=== PATIENT | female | born 1940 | race Caucasian/White ===

== ENCOUNTER 2019-05-07 18:59 | Inpatient (IN) | payer MEDICARE, OTHER ==
[~2019-05-07] VITALS: Ht 157.5 cm; Wt 85.8 kg
[2019-05-07 23:30] VITALS: BP 159/84
--- NOTE | 2019-05-07 23:30 | NUR ---
TELE WASTEWATER TREATMENT PLANT SUPERVISOR INITIAL NOTES RECEIVED A DIRECT ADMIT FROM [facility] ACCOMPANIED BY [facility]. PT IS ALERT ORIENTED SEEMS SO TIRED BUT ABLE TO COMMUNICATE . WITH 02 AT 3 LITERS VIA NASAL CANULA. NO SIGNS OF ANY DISTRESS NOTED. AWARE WHERE SHE AT ORIENTED HER HOW TO USED THE CALL LIGHT SYSTEM. SKIN WARM AND DRY TO TOUCH NOTICED SOME RASH AND DISCOLORATION ON HER LEFT ARM AND LOWER LEGS. NO EDEMA NOTED. SON ALSO AT THE BEDSIDE AND HELPED TO PROVIDE SOME INFORMATION REGARDING HIS MOM. TELE SINUS RHYTHM PER MONITOR. KEPT HER WARM AND COMFORTABLE AT ALL TIMES. WILL CONTINUE MONITORING.
[2019-05-08] MEDS ORDERED: NYST5ORA PO (00:12)
[2019-05-08] MEDS ORDERED: CHOL200026 PO (00:12)
[2019-05-08] MEDS ORDERED: PANT40TA2 PO (00:12)
[2019-05-08] MEDS ORDERED: OMEP40CA37 PO (00:12)
[2019-05-08] MEDS ORDERED: LINA5TAB PO (00:12)
[2019-05-08] MEDS ORDERED: ALBU18HF2 INH (00:12)
[2019-05-08] MEDS ORDERED: FLUT100D INH (00:12)
[2019-05-08] MEDS ORDERED: ALLO300T72 PO (00:12)
[2019-05-08] MEDS ORDERED: METF1000 PO (00:12)
[2019-05-08] MEDS ORDERED: HYDR15SO11 PO (00:12)
[2019-05-08 00:15] VITALS: BP 159/84
[2019-05-08] MEDS ORDERED: ACETAMINOPHEN 325 MG TABLET PO PRN (01:30)
[2019-05-08] MEDS ORDERED: Z GUARD REMEDY 2 OZ OINT TP PRN (01:30)
[2019-05-08] MEDS ORDERED: TPN/PPN PER PHARMACY XX PRN (01:30)
[2019-05-08] MEDS ORDERED: ONDANSETRON HCL/PF 4 MG/2 ML VIAL IVP PRN (01:30)
[2019-05-08 01:42] LABS: BASOPHILS % (AUTO) 0.3 % (0.0-2.0); EOSINOPHILS % (AUTO) 1.4 % (0.0-6.0); HEMATOCRIT 36 % (33-45); HEMOGLOBIN 11.8 g/dL (11.5-14.8); LYMPHOCYTES # (AUTO) 0.2 /CMM (0.8-4.8); MEAN CORPUSCULAR HGB CONC 33 g/dl (31.0-36.0); MEAN CORPUSCULAR VOLUME 83 fL (82-100); MONOCYTES % (AUTO) 0.4 % (2.0-12.0); NEUTROPHILS # (AUTO) 3.5 /CMM (1.8-8.9); NEUTROPHILS % (AUTO) 91.9 % (43.0-81.0); PLATELET COUNT (AUTO) 195 /CMM (150-450); RED BLOOD CELL COUNT(AUTO) 4.31 MIL/uL (4.0-5.2); WHITE BLOOD COUNT (AUTO) 3.8 K/uL (4.3-11.0)
[2019-05-08 01:53] LABS: ALANINE AMINOTRANSFERASE 24 U/L (12-78); ALKALINE PHOSPHATASE 65 U/L (46-116); ASPARTATE AMINOTRANSFERASE 28 U/L (15-37); BILIRUBIN,TOTAL 1.1 mg/dL (0.2-1.0); CALCIUM, SERUM 6.3 mg/dL (8.5-10.1); CARBON DIOXIDE 28 mmol/L (21-32); CHLORIDE 101 mmol/L (98-107); CREATININE 0.6 mg/dL (0.6-1.3); GLUCOSE 72 mg/dL (74-106); PHOSPHORUS 2.3 mg/dL (2.5-4.9); POTASSIUM 3.3 mmol/L (3.5-5.1); SODIUM SERUM 137 mmol/L (136-145); UREA NITROGEN, BLOOD 10 mg/dL (7-18)
[2019-05-08 01:57] LABS: MAGNESIUM 1.2 mg/dL (1.8-2.4)
[2019-05-08] MEDS ORDERED: IV 10% DEXTROSE 1,000 ML IV SCH (02:00)
--- NOTE | 2019-05-08 02:09 | NUR ---
TELE THREAD TRIMMER NOTES GOT CRITICAL VALUE RESULT MAGNESIUM 1.[address] VELÁSQUEZ AND RECEIVED ORDERED NOTED AND VERIFIED.
[2019-05-08] MEDS ORDERED: Magnesium 1GM/D5W 100ML PREMIX 200 ML IV ONE (02:17)
[2019-05-08] MEDS ORDERED: Magnesium 1GM/D5W 100ML PREMIX PIGGYBACK IV ONE (02:30)
--- NOTE | 2019-05-08 02:35 | NUR ---
TELE MULE DEVELOPER NOTES PT COMPLAINED OF GENERALIZED PAIN SPECIALLY HER UPPER BACK 07/21. SPOKE TO DR VELÁSQUEZ AND GOT ORDERED MORPHINE 2 MG Q 6 HRS PRN NOTED AND VERIFIED.
[2019-05-08] MEDS: Magnesium 1GM/D5W 100ML PREMIX 100 ML IV SCH ×4 (02:39→15:31)
[2019-05-08] MEDS: MORPHINE SULFATE INJ 2 MG/ML DISP.SYRIN IV PRN ×3 (02:58→22:29)
--- NOTE | 2019-05-08 03:46 | NUR ---
TELE HEAD TURNING MACHINE OPERATOR NOTES/PAIN MGT RE- ASSESSMENT, CHECKED PT AND SEEN SLEEPING COMFORTABLY IN BED WITHOUT ANY DISCOMFORT OR DISTRESS NOTED. TELE SINUS RHYTHM WITH PAC'S HEART RATE 75. WILL CONTINUE MONITORING
[2019-05-08 04:00] VITALS: BP 145/80
[2019-05-08 04:40] VITALS: BP 145/80
--- NOTE | 2019-05-08 07:19 | NUR ---
TELE MOTHER REPAIRER CLOSING NOTES PT BACK TO SLEEP AFTER MORNING CARE DONE WITH THE HELPED OF IFRAH ALFONSO. REPOSITION PT FOR COMFORT. IVF STILL INFUSING ON HER LEFT AC PATENT AND INTACT. NO REDNESS NOTED. TELE SINUS RHYTHM HEART RATE 78 PER MONITOR. MRSA SWAB DONE ORDERED AND PER HOSPITAL PROTOCOL . KEPT HER WARM AND COMFORTABLE AT ALL TIMES. PT STILL WITH O2 AT 3 LITERS VIA NASAL CANULA. NO SIGNS OF ANY DISTRESS NOTED. VITAL SIGNS WITHIN NORMAL LIMIT. ON SEMI FOWLERS POSITION WITH SIDE RAILS UP AND BED ALARM SET FOR PT SAFETY. ENDORSE TO AM NURSE LEANNE FOR CONTINUITY OF CARE. CALL LIGHT WITHIN REACH.
--- NOTE | 2019-05-08 07:30 | NUR ---
PRODUCE SORTER OPENING NOTES RECEIVED PATIENT ASLEEP ON BED. IVF STILL INFUSING ON HER LEFT AC PATENT AND INTACT. NO REDNESS NOTED. TELE SINUS RHYTHM WITH OCCASIONAL PAC WITH HEART RATE OF 70'S PER MONITOR. PT STILL WITH O2 AT 3 LITERS VIA NASAL CANULA. NO SIGNS OF ANY DISTRESS NOTED. ON SEMI FOWLERS POSITION WITH SIDE RAILS UP AND BED ALARM SET FOR PT SAFETY. CALL LIGHT WITHIN REACH. WILL CONTINUE TO MONITOR.
[2019-05-08 08:00] VITALS: BP 156/77
[2019-05-08] MEDS: NYSTATIN (PYXIS) 500,000 UNIT/5 ML ORAL.SUSP PO SCH ×2 (09:18→12:44)
--- NOTE | 2019-05-08 09:32 | NUR ---
CUSTOMER ENGAGEMENT ANALYST NOTES RECEIVED ORDER FOR X-RAY ESOPHAGRAM, EXPLAINED THE PROCEDURE TO THE PATIENT AND SON. CONSENT SIGNED BY KADEN MCKEON (SON) WHICH IS THE DPOA AND FILED.
[2019-05-08] MEDS ORDERED: PANTOPRAZOLE 40 MG VIAL IV SCH (10:00)
--- NOTE | 2019-05-08 11:18 | NUR ---
RN NOTES PATIENT PICKED UP VIA HER BED FOR X-RAY ESOPHAGRAM.
[2019-05-08] MEDS ORDERED: BARIUM SULFATE 98% 135 ML SUSP.RECON PO ONE (11:28)
[2019-05-08] MEDS: IV D5/0.45 NACL 1,000 ML IV PRN (12:01)
[2019-05-08] MEDS: FAMOTIDINE/PF INJ 20 MG/2 ML VIAL IV SCH ×2 (12:25→21:13)
[2019-05-08] MEDS ORDERED: Sodium Phosphate 15 MMOL in IV D5W 250 ML IV ONE (13:00)
[2019-05-08] MEDS: POTASSIUM CL. PREMIX PERIPHER. 50 ML IV SCH ×2 (13:23→14:31)
--- NOTE | 2019-05-08 15:09 | NUR ---
RN NOTES SWALLOW EVALUATION DONE WITH ORDERS TO CHANGE DIET FROM NPO TO PUREED DIET WITH NECTAR THICK LIQUIDS WITH ASPIRATION PRECAUTION.
[2019-05-08 16:00] VITALS: BP 145/75
--- NOTE | 2019-05-08 17:12 | NUR ---
RN NOTES FAXED AUTHORIZATION TO RELEASED CT CHEST SCAN RESULT TO [facility] FAX # [phone] AND RECEIVED CONFIRMATION THAT IT WAS RECEIVED. PT'S SON SAID THAT HE WILL TRY TO BRING THE CT CHEST RESULT ALSO TOMORROW.
[2019-05-08] MEDS ORDERED: DOSE PER PHARMACY (MD SPECIFY MEDICATION) 1 EA XX PRN (17:30)
[2019-05-08] MEDS ORDERED: FLUCONAZOLE (100 MG) 100 MG TABLET PO ONE (17:41)
[2019-05-08] MEDS ORDERED: MAG HYDROX/AL HYDROX/SIMETH 30 ML UDC PO ONE (17:51)
[2019-05-08] MEDS ORDERED: NYSTATIN (PYXIS) 500,000 UNIT/5 ML ORAL.SUSP PO ONE (17:51)
[2019-05-08] MEDS ORDERED: LIDOCAINE VISCOUS 2% UD 15 ML UDC PO ONE (17:51)
--- NOTE | 2019-05-08 18:01 | NUR ---
RN NOTES PATIENT IS STILL FOR PICC LINE INSERTION, CONSENT ALREADY SIGNED.
--- NOTE | 2019-05-08 18:23 | NUR ---
RN NOTES PATIENTS' MAGNESIUM LEVEL WAS RECHECKED THIS AFTERNOON AND WAS 1.5 AFTER GIVING 2 BAGS OF MAGNESIUM 1/GM 100ML TODAY. DR SMART MADE AWARE WITH ORDER TO START MAGNESIUM OXIDE 800MG BID. WILL CARRY OUT ORDER. MONITORING CONTINUES.
--- NOTE | 2019-05-08 18:33 | NUR ---
MS RN OPENING NOTES PATIENT IN BED AWAKE AND RESTING AT MODERATE HIGH BACKREST POSITION WITH FAMILY AT BEDSIDE. A/O X3. VERBALLY RESPONSIVE. ON SUPPLEMENTAL O2 AT 3 LPM VIA N/C, TOLERATING WELL WITH NO SIGNS OF DISTRESS NOTED. IV ACCESS ON LEFT AC PATENT AND INTACT, IVF INFUSING ORDERED, NO S/S OF INFILTRATIONS NOTED. ALL NEEDS NAD CARE PROVIDED WELL. SAFETY MEASURES IN PLACE. BED IN LOW LOCKED POSITION WITH SIDE-RAILS UP X2. CALL LIGHT WITHIN REACH. WILL ENDORSE TO PAINT LINE PRODUCTION SUPERVISOR NURSE FOR TREVON..
[2019-05-08] MEDS: MAGNESIUM OXIDE 400 MG TABLET PO SCH (18:45)
[2019-05-08 20:00] VITALS: BP 155/86
--- NOTE | 2019-05-08 20:00 | NUR ---
MS RN NOTE: PATIENT RESTING IN BED, NO ACUTE DISTRESS NOTED, FAMILY AT BEDSIDE. BREATHING EVEN AND UNLABORED, NO SOB NOTED. IV LAC IN PLACE. BED LOCKED AND IN LOWEST POSITION, CALL LIGHT IN REACH. WILL CONTINUE TO MONITOR.
[2019-05-08] MEDS: MAGIC MOUTHWASH PO SCH (21:13)
[2019-05-08] MEDS ORDERED: NYSTATIN (PYXIS) 500,000 UNIT/5 ML ORAL.SUSP PO SCH (22:00)
[2019-05-08] MEDS ORDERED: LIDOCAINE VISCOUS 2% UD 15 ML UDC PO SCH (22:00)
[2019-05-08] MEDS ORDERED: MAG HYDROX/AL HYDROX/SIMETH 30 ML UDC PO SCH (22:00)
[2019-05-08] MEDS ORDERED: ALBUTEROL FS 2.5 MG/0.5 ML VIAL.NEB NEB PRN (22:30)
[2019-05-08] MEDS ORDERED: ALBUTEROL FS 2.5 MG/3 ML VIAL.NEB NEB PRN (22:30)
--- NOTE | 2019-05-08 22:30 | NUR ---
MS RN NOTE: PATIENT SON AT BEDSIDE REQUESTING FROM BREATHING TREATMENT THAT PATIENT NORMALLY TAKES AT HOME. CLOCK AND WATCH HANDS PAINTER DR. EMMA BALDWIN ON FLOOR AND REQUEST IF PATIENT CAN RECEIVE BREATHING TREATMENT. VENTOLIN 2.5MG NEB Q6 HOURS NEEDED. ORDER NOTED AND CARRIED OUT. WILL CONTINUE TO MONITOR.
--- NOTE | 2019-05-09 06:45 | NUR ---
MS RN NOTE: PATIENT RESTING IN BED, NO ACUTE DISTRESS NOTED. BREATHING EVEN AND UNLABORED, NO SOB NOTED. IV LAC IN PLACE. BED LOCKED AND IN LOWEST POSITION, CALL LIGHT IN REACH. WILL ENDORSE TO DAY NURSE TO CONTINUE WITH PLAN OF CARE.
--- NOTE | 2019-05-09 07:25 | NUR ---
MS RN OPENING NOTES RECEIVED PT SLEEPING IN BED, EASILY AROUSED. FARSI SPEAKING, CAN UNDERSTAND AND SPEAK A LITTLE TURKISH. ON SUPPLEMENTARY OXYGEN AT 3L VIA NC, WITH NO ACUTE RESPIRATORY DISTRESS NOTED. PT DENIES ANY PAIN OR DISCOMFORT. ALSO, DENIES ANY CONCERNS AND QUESTIONS. IVF D5 1/2 NS AT 75 ML/HR TO LAC G20, INTACT AND FLUID INFUSING WELL. PT KEPT COMFORTABLE. PT'S BED IN LOWEST, LOCKED POSITION WITH SR X3. CALL LIGHT WITHIN REACH. WILL CONTINUE PLAN OF CARE.
[2019-05-09 07:32] LABS: BASOPHILS % (AUTO) 0.4 % (0.0-2.0); EOSINOPHILS % (AUTO) 3.5 % (0.0-6.0); HEMATOCRIT 32 % (33-45); HEMOGLOBIN 10.8 g/dL (11.5-14.8); LYMPHOCYTES # (AUTO) 0.2 /CMM (0.8-4.8); LYMPHOCYTES % (AUTO) 12.5 % (20.0-44.0); MEAN CORPUSCULAR HGB CONC 34 g/dl (31.0-36.0); MEAN CORPUSCULAR VOLUME 83 fL (82-100); MONOCYTES % (AUTO) 0.9 % (2.0-12.0); NEUTROPHILS # (AUTO) 1.2 /CMM (1.8-8.9); NEUTROPHILS % (AUTO) 82.7 % (43.0-81.0); PLATELET COUNT (AUTO) 134 /CMM (150-450); RED BLOOD CELL COUNT(AUTO) 3.92 MIL/uL (4.0-5.2)
[2019-05-09 07:39] LABS: WHITE BLOOD COUNT (AUTO) 1.4 K/uL (4.3-11.0)
[2019-05-09 07:40] LABS: CHOLESTEROL 181 mg/dL (<200); HDL CHOLESTEROL 63 mg/dL (40-60); LDL 97 mg/dL (0-99); TRIGLYCERIDES 131 mg/dL (30-150)
[2019-05-09 07:44] LABS: BILIRUBIN,DIRECT 0.5 mg/dL (0.0-0.2); BILIRUBIN,TOTAL 1.4 mg/dL (0.2-1.0); TOTAL PROTEIN, SERUM 4.9 g/dL (6.4-8.2)
--- NOTE | 2019-05-09 07:49 | NUR ---
MS RN NOTES RECEIVED CALL FROM LAB REGARDING WBC OF 1.4. WILL NOTIFY HOSPITALIST.
[2019-05-09 07:54] LABS: CALCIUM, SERUM 6.3 mg/dL (8.5-10.1); CARBON DIOXIDE 29 mmol/L (21-32); CHLORIDE 97 mmol/L (98-107); CREATININE 0.5 mg/dL (0.6-1.3); GLUCOSE 192 mg/dL (74-106); MAGNESIUM 1.4 mg/dL (1.8-2.4); PHOSPHORUS 1.7 mg/dL (2.5-4.9); POTASSIUM 2.9 mmol/L (3.5-5.1); SODIUM SERUM 134 mmol/L (136-145); UREA NITROGEN, BLOOD 7 mg/dL (7-18)
[2019-05-09 08:00] VITALS: BP 149/75
[2019-05-09] MEDS: MAGIC MOUTHWASH PO SCH ×4 (08:19→21:04)
[2019-05-09 08:30] LABS: THYROID STIMULATING HORMONE 1.831 uIU/mL (0.358-3.74)
[2019-05-09 08:59] LABS: ABG BASE EXCESS 5.4 mmol/L; ABG PH 7.562 (7.350-7.450); ABG PO2 111.5 mmHg (75.0-100.0); AaDO2 109.2 mmHg; MetHb 0.6 % (0.0-1.5); O2Hb 96.4 % (94.0-97.0); SITE, ABG Right Radial; VENT MODE, BG N/C
[2019-05-09] MEDS: MAGNESIUM OXIDE 400 MG TABLET PO SCH ×2 (09:00→16:52)
[2019-05-09] MEDS: FAMOTIDINE/PF INJ 20 MG/2 ML VIAL IV SCH ×2 (09:06→21:01)
[2019-05-09] MEDS: POTASSIUM CL. PREMIX PERIPHER. 50 ML IV SCH ×6 (10:12→16:11)
[2019-05-09 10:24] LABS: EOSINOPHILS % (MANUAL) 3 % (0-4); LYMPHOCYTES % (MANUAL) 15 % (16-48); NEUTROPHILS % (MANUAL) 82 (42-76)
[2019-05-09] MEDS ORDERED: FILGRASTIM (300 MCG) 300 MCG/ML VIAL SQ SCH (11:00)
[2019-05-09] MEDS: MORPHINE SULFATE INJ 2 MG/ML DISP.SYRIN IV PRN ×3 (11:12→23:05)
--- NOTE | 2019-05-09 13:00 | NUR ---
MS RN NOTES PICC LINE WITH 2 LUMENS INSERTED TO NAVARRO BV, 39CM WITH 35CM AC. CXRAY WAS DONE STAT TO CONFIRM PLACEMENT. CASEY/GERARDO MADE AWARE. FAMILY/SON PRESENT AT BEDSIDE. GRANIX 300MG SQ GIVEN TO RLQ OF ABDOMEN.
[2019-05-09] MEDS: TBO-FILGRASTIM 300 MCG/0.5 ML SYRINGE SQ SCH (13:05)
--- NOTE | 2019-05-09 14:50 | NUR ---
MS RN NOTES RECEIVED CALL FROM LAB REGARDING RIGHT NARE POSITIVE FOR MRSA. CONTACT ISOLATION INITIATED. HOSPITALIST TS MADE AWARE. PT PLACED ON BACTROBAN TREATMENT. CASEY/GERARDO MADE AWARE WELL.
[2019-05-09 16:00] VITALS: BP 161/77
[2019-05-09] MEDS ORDERED: Sodium Phosphate 15 MMOL in IV D5W 250 ML IV ONE (16:00)
[2019-05-09] MEDS: FLUCONAZOLE (100 MG) 100 MG TABLET PO SCH (16:52)
--- NOTE | 2019-05-09 17:15 | NUR ---
MS RN NOTES PT COMPLAINED OF LOWER BACK PAIN, SCALE OF 8-9 OUT OF 10. PT REQUESTED MORPHINE IV. GIVEN PRN PAIN MEDICATION ORDERED. WILL CONTINUE TO MONITOR.
--- NOTE | 2019-05-09 18:28 | NUR ---
MS RN CLOSING NOTES PT REMAINS RESTING IN BED, EASILY AROUSED. FARSI SPEAKING, CAN UNDERSTAND AND SPEAK A LITTLE PORTUGUESE. 2 FAMILY MEMBERS PRESENT AT BEDSIDE. ON SUPPLEMENTARY OXYGEN AT 3L VIA NC, WITH NO ACUTE RESPIRATORY DISTRESS NOTED. PT DENIES ANY PAIN OR DISCOMFORT AT THIS TIME IVF D5 1/2 NS AT 75 ML/HR TO NAVARRO PICC LINE (WITH 2LUMENS), INTACT AND FLUID INFUSING WELL. PIV TO LAC G20, FLUSHED WITH NS, INTACT AND OPERATIONAL. ALL NEEDS AND CARE PROVIDED. PT KEPT COMFORTABLE. HOB ELEVATED. PT'S BED IN LOWEST, LOCKED POSITION WITH SR X3. CALL LIGHT WITHIN REACH. WILL ENDORSE TO INCOMING NIGHT NURSE FOR TREVON.
--- NOTE | 2019-05-09 19:45 | NUR ---
MS RN NOTES RECEIVED ON BED A/O X2-3,SPEAK FARSI,ABLE TO UNDERSTAND RWANDAN.APPEARS LETHARGIC,WAS JUST MEDICATED WITH MORPHINE BY DAY NURSE AT 1700.WITH PICC LINE RIGHT UPPER ARM INTACT AND PATENT,NUTRA PHOS IN PROGRESS.ISOLATION PRECAUTION FOR MRSA NARES.NOTED SWELLING ON BOTH UPPER AND LOWER EXTREMITIES.CALL LIGHT IN REACH,NEEDS ANTICIPATED.
[2019-05-09 20:00] VITALS: BP 140/75
[2019-05-09] MEDS: MUPIROCIN OINT 2% 22 GM TUBE SCH (21:02)
--- NOTE | 2019-05-09 23:05 | NUR ---
MS RN NOTES MOANS IN PAIN,MEDICATED WITH MORPHINE 2MG IV ORDERED AND PER FAMILY REQUEST.
--- NOTE | 2019-05-10 04:00 | NUR ---
MS RN NOTES DL ALFONSO CAME THIS TIME.
[2019-05-10] MEDS: IV D5/0.45 NACL 1,000 ML IV PRN ×2 (04:39→17:45)
[2019-05-10] MEDS: MORPHINE SULFATE INJ 2 MG/ML DISP.SYRIN IV PRN (05:36)
--- NOTE | 2019-05-10 05:36 | NUR ---
MS RN NOTES AWAKE,MOANING IN PAIN,MEDICATED WITH MORPHINE 2MG IV PER FAMILY REQUEST.IVF INFUSING.
--- NOTE | 2019-05-10 06:30 | NUR ---
MS RN NOTES ON BED SLEEPING,IVF IN PROGRESS,PICC LINE REMAINS PATENT.BLOOD DRAWN DONE ON PICC LINE RED PORT,FLUSHED WITH NS AND KEPT PATENT.REPOSITION PER PROTOCOL.SON AT BEDSIDE,AWAITING FOR HOSPITALIST TO DISCUSS ABOUT PLAN OF CARE REGARDING PATIENT.IN NO ACUTE DISTRESS.WILL ENDORSE TO AMIE MURILLO FOR TREVON.
[2019-05-10 07:23] LABS: CALCIUM, SERUM 6.2 mg/dL (8.5-10.1); CARBON DIOXIDE 28 mmol/L (21-32); CHLORIDE 97 mmol/L (98-107); CREATININE 0.5 mg/dL (0.6-1.3); GLUCOSE 263 mg/dL (74-106); PHOSPHORUS 1.8 mg/dL (2.5-4.9); POTASSIUM 3.3 mmol/L (3.5-5.1); SODIUM SERUM 132 mmol/L (136-145); UREA NITROGEN, BLOOD 6 mg/dL (7-18)
--- NOTE | 2019-05-10 07:38 | NUR ---
M/S RN NOTES PATIENT IN BED RESTING, ALERT AND ORIENTED X3, NO RESPIRATORY DISTRESS NOTED, NO C/O PAIN AT THIS TIME. SKIN WARM TO TOUCH. PICC LINE INTACT AND PATENT WITH IVF OF D5 1/2NS RUNNING. PATIENT'S NEEDS ATTENDED, BED ON LOWEST LOCKED POSITION, CALL LIGHT WITHIN REACH. WILL CONTINUE TO MONITOR.
[2019-05-10 08:00] VITALS: BP 146/69
[2019-05-10] MEDS: MAGIC MOUTHWASH PO SCH ×4 (08:34→21:16)
[2019-05-10] MEDS: MAGNESIUM OXIDE 400 MG TABLET PO SCH ×2 (08:39→16:28)
[2019-05-10] MEDS: FLUCONAZOLE (100 MG) 100 MG TABLET PO SCH (08:39)
[2019-05-10] MEDS: FAMOTIDINE/PF INJ 20 MG/2 ML VIAL IV SCH ×2 (08:40→21:14)
[2019-05-10] MEDS: MUPIROCIN OINT 2% 22 GM TUBE SCH ×2 (08:51→21:15)
[2019-05-10] MEDS ORDERED: NEUTRA PHOS 1 POWD.PACKET PO ONE (11:00)
[2019-05-10] MEDS ORDERED: POTASSIUM CHLORIDE 20 MEQ POWDER PACKET PO SCH (11:00)
--- NOTE | 2019-05-10 13:00 | NUR ---
M/S RN NOTES PIPO SMART, AMBROCIO CAME TO SEE PATIENT AND FAMILY IN REGARDS TO DISCHARGE BUT SON KADEN LEFT WITHOUT SEEING PIPO SMART.
[2019-05-10] MEDS: TBO-FILGRASTIM 300 MCG/0.5 ML SYRINGE SQ SCH (13:06)
[2019-05-10] MEDS ORDERED: TBO-FILGRASTIM 300 MCG/0.5 ML SYRINGE SQ SCH (14:30)
[2019-05-10 16:00] VITALS: BP 140/72
--- NOTE | 2019-05-10 18:10 | NUR ---
M/S RN NOTES PATIENT LYING IN BED RESTING, ALERT AND ORIENTED X2. NO RESPIRATORY DISTRESS NOTED, NO S/S OF PAIN AT THIS TIME. SKIN WARM TO TOUCH. IVF OF D5 1/2 INFUSING ON THE [facility] PICC LIJNE, NO REDNESS, NO INFILTRATION NOTED. PATIENT'S NEEDS ATTENDED. BED ON LOWEST LOCKED POSITION, CALL LIGHT WITHIN REACH. WILL ENDORSE TO ONCOMING NURSE.
--- NOTE | 2019-05-10 19:23 | NUR ---
MS RN NOTES RECEIVED LAYING COMFORTABLY ON BED,A/O X2-3,BREATHING NON LABORED,O2 IN USED AT 3L/NC,SPEAK FARSI WITH LITTLE LAO,NOTED EDEMA ON BOTH LOWER AND UPPER EXTREMITIES.KCI MATTRESS IN USED FOR SKIN MANAGEMENT.SALINE LOCK IN PLACE INFUSING D5 1/2 NS AT 75ML HR RATE.ISOLATION PRECAUTION FOR MRSA NARES.FAMILY MEMBERS AT BEDSIDE.CALL LIGHT IN REACH,NEEDS ANTICIPATED.
[2019-05-10 20:00] VITALS: BP 143/73
[2019-05-10 20:59] VITALS: BP 143/73
--- NOTE | 2019-05-10 21:00 | NUR ---
MS RN NOTES ORAL CARE RENDERED,DUE NYSTATIN ADMINISTERED FOR ORAL THRUSH
[2019-05-11] MEDS: MORPHINE SULFATE INJ 2 MG/ML DISP.SYRIN IV PRN ×2 (02:51→11:41)
--- NOTE | 2019-05-11 02:51 | NUR ---
MS RN NOTES AWAKE THIS TIME,MOANING AND RESTLESS.MORPHINE 2MG IV GIVEN ORDERED.DIAPER CHANGED,REPOSITIONED.
--- NOTE | 2019-05-11 06:14 | NUR ---
MS RN NOTES FAIRLY RESTED.MEDICATED ONE TIME WITH MORPHINE 2MG IV.REMAINS ON ISOLATION PRECAUTION.REPOSITION PER PROTOCOL.SWELLING ON BOTH UPPER AND LOWER EXTREMITIES IMPROVING.PICC LINE REMAINS PATENT ON RIGHT UPPER ARM.IN NO ACUTE DISTRESS
[2019-05-11 07:04] LABS: CALCIUM, SERUM 6.1 mg/dL (8.5-10.1); CARBON DIOXIDE 27 mmol/L (21-32); CHLORIDE 97 mmol/L (98-107); CREATININE 0.6 mg/dL (0.6-1.3); GLUCOSE 271 mg/dL (74-106); PHOSPHORUS 1.6 mg/dL (2.5-4.9); POTASSIUM 3.4 mmol/L (3.5-5.1); SODIUM SERUM 132 mmol/L (136-145); UREA NITROGEN, BLOOD 5 mg/dL (7-18)
--- NOTE | 2019-05-11 07:20 | NUR ---
MS RN OPENING NOTES PATIENT IN BED RESTING COMFORTABLY. PATIENT BREATHING ON OXYGEN NC 3L. PATIENT BREATHING IS EVEN AND UNLABORED. PATIENT IN NO ACUTE DISTRESS. NO SOB NOTED. PATIENT WITH NO FACIAL GRIMACING AT THIS TIME. PATIENT BED IS LOCKED AND IN LOWEST POSITION. CALL LIGHT WITHIN REACH. WILL CONTINUE TO MONITOR.
[2019-05-11 07:33] LABS: MAGNESIUM 0.9 mg/dL (1.8-2.4)
--- NOTE | 2019-05-11 07:40 | NUR ---
MS RN NOTES RECEIVED CRITICAL VALUE MAGNESIUM 0.9 AND WBC 0.5. CONTACTED DR. SAM. BALDWIN AWARE AND NOTIFIED. WAITING ON REDRAW FOR LABS.
[2019-05-11 08:00] VITALS: BP 136/66
[2019-05-11 08:49] LABS: EOSINOPHILS % (AUTO) 4.3 % (0.0-6.0); HEMATOCRIT 28 % (33-45); HEMOGLOBIN 9.4 g/dL (11.5-14.8); LYMPHOCYTES # (AUTO) 0.2 /CMM (0.8-4.8); LYMPHOCYTES % (AUTO) 67.2 % (20.0-44.0); MEAN CORPUSCULAR HGB CONC 34 g/dl (31.0-36.0); MEAN CORPUSCULAR VOLUME 82 fL (82-100); MONOCYTES # (AUTO) 0.1 /CMM (0.1-1.30); MONOCYTES % (AUTO) 22.6 % (2.0-12.0); NEUTROPHILS % (AUTO) 5.9 % (43.0-81.0); PLATELET COUNT (AUTO) 82 /CMM (150-450); RED BLOOD CELL COUNT(AUTO) 3.42 MIL/uL (4.0-5.2)
--- NOTE | 2019-05-11 08:54 | NUR ---
MS RN NOTES 0740 MAGNESIUM LAB LEVEL REPORTED WAS 0.9. REPEAT MAGNESIUM LAB IS 0.9. ORDERS FROM DR. PARK, 2GM IV MAG. WILL CONTINUE TO MONITOR.
[2019-05-11] MEDS ORDERED: Magnesium 1GM/D5W 100ML PREMIX PIGGYBACK IV ONE (09:00)
--- NOTE | 2019-05-11 09:00 | NUR ---
MS RN NOTES RECEIVED WBC CRITICAL VALUE OF 0.2. NOTIFIED DR. XAVIER MACKEY. NO NEW ORDERS AT THIS TIME. PATIENT IN NO ACUTE DISTRESS. WILL CONTINUE TO MONITOR.
[2019-05-11 09:01] LABS: WHITE BLOOD COUNT (AUTO) 0.2 K/uL (4.3-11.0)
[2019-05-11] MEDS: MAGIC MOUTHWASH PO SCH ×4 (09:36→22:00)
[2019-05-11] MEDS: FAMOTIDINE/PF INJ 20 MG/2 ML VIAL IV SCH ×2 (09:37→23:30)
[2019-05-11] MEDS: MAGNESIUM OXIDE 400 MG TABLET PO SCH ×3 (09:38→16:59)
[2019-05-11] MEDS: FLUCONAZOLE (100 MG) 100 MG TABLET PO SCH (09:38)
[2019-05-11] MEDS: MUPIROCIN OINT 2% 22 GM TUBE SCH ×2 (09:53→23:35)
[2019-05-11] MEDS: Magnesium 1GM/D5W 100ML PREMIX 100 ML IV SCH ×4 (09:53→17:22)
[2019-05-11 11:43] LABS: EOSINOPHILS % (MANUAL) 2 % (0-4); LYMPHOCYTES % (MANUAL) 75 % (16-48); MONOCYTES % (MANUAL) 19 % (0-11.0); NEUTROPHILS % (MANUAL) 4 (42-76)
--- NOTE | 2019-05-11 12:17 | NUR ---
MS/RN Magnesium level Received call from pharmacy to follow up with Dr Ryan regarding magnesium level being 0.9. Per pharmacy protocol, magnesium to be replaced by pharmacist if level greater than 1.2. Dr Ramírez already contacted by primary nurse at 0933 and made aware of level, order given to infuse 2gm IVPB. MD also contacted by pharmacist. Dr Ramírez paged by charge nurse to be made aware of level and to obtain new order. Per MD, order already given for 2gm this morning and no further order was needed. Pharmacy made aware.
[2019-05-11] MEDS: TBO-FILGRASTIM 300 MCG/0.5 ML SYRINGE SQ SCH (12:51)
[2019-05-11] MEDS ORDERED: POTASSIUM CHLORIDE 20 MEQ POWDER PACKET PO SCH (13:00)
[2019-05-11] MEDS ORDERED: K PHOS NEUTRAL 250 MG TABLET PO ONE (13:30)
--- NOTE | 2019-05-11 13:50 | NUR ---
MS RN NOTES PATIENT IS RESTING IN BED. PATIENT IN NO ACUTE DISTRESS. PATIENT PLACED ON NEUTROPENIC PRECAUTIONS. WILL CONTINUE TO MONITOR.
[2019-05-11] MEDS: IV D5/0.45 NACL 1,000 ML IV PRN (15:07)
--- NOTE | 2019-05-11 15:30 | NUR ---
MS RN NOTES PATIENT MOST RECENT MAGNESIUM LAB LEVEL IS 1.5. PER DR. PARK GIVE 2GM IV MAGNESIUM IF BELOW 1.7. WILL CARRY OUT ORDERS. PATIENT IN NO ACUTE DISTRESS. WILL CONTINUE TO MONITOR.
[2019-05-11 16:00] VITALS: BP 154/76
--- NOTE | 2019-05-11 16:00 | NUR ---
MS RN NOTES NOTIFIED DR. PARK OF PATIENTS FAMILY WANTING TO SPEAK WITH HIM. DR. PARK AT THIS TIME HAS NOT SPOKEN TO PATIENT FAMILY. PATIENT FAMILY WAITING BY BEDSIDE. PATIENT IN NO ACUTE DISTRESS. WILL CONTINUE TO MONITOR.
[2019-05-11] MEDS ORDERED: ACETAMINOPHEN 650 MG/SUPP.RECT RC PRN (17:00)
[2019-05-11] MEDS ORDERED: CEFEPIME 1 GM VIAL IM SCH (17:30)
[2019-05-11] MEDS: CEFEPIME 1 GM in IV D5W 50 ML IV SCH (18:29)
--- NOTE | 2019-05-11 18:52 | NUR ---
MS RN CLOSING NOTES PATIENT LAYING IN BED, RESTING COMFORTABLY. PATIENT BREATHING ON OXYGEN NC 3L. PATIENT BREATHING IS EVEN AND UNLABORED. PATIENT IN NO ACUTE DISTRESS. PATIENT RECEIVING CEFEPIME 100 ML/HR ON RIGHT ARM PICC LINE PER MD ALBERTO. DR. PARK NOTIFIED ABOUT PATIENTS FAMILY REQUEST TO TALK TO DOCTOR, PATIENTS FAMILY IS AT THE BEDSIDE. BED ALARM IS ON. ALL NURSING NEEDS MET. PATIENT KEPT CLEAN, DRY, AND REPOSITIONED. PATIENT MAINTAINED ON NEUTROPENIC PRECAUTIONS. PATIENT BED IS LOCKED AND IN LOWEST POSITION. CALL LIGHT WITHIN REACH. WILL ENDORSE CARE TO PM SHIFT.
--- NOTE | 2019-05-11 19:50 | NUR ---
RN OPENING NOTES RECEIVED REPORT FROM [facility]. FOUND Pt ASLEEP IN BED, FAMILY VISITING AT BEDSIDE. NO S/S OF ACUTE DISTRESS OR SOB NOTED. RESPIRATIONS EVEN AND UNLABORED AT THIS TIME WITH EQUAL CHEST RISE AND FALL. NO SIGNS OF PAIN NOTED AT THIS TIME. Pt IS A/OX2. IV ACCESS ON NAVARRO PICC LINE, #18G; IVF D5 1/2NS @75ML/HR. SAFETY MEASURES IN PLACE. BED LOW, LOCKED, HOB ELEVATED, SIDE RAILS UP, BED ALARM ON. WILL CONTINUE TO MONITOR Pt's CONDITION AND SAFETY THROUGHOUT THE NIGHT.
[2019-05-11 20:00] VITALS: BP 129/72
[2019-05-11 21:04] LABS: APPEARANCE,URINE SL CLOUDY (CLEAR); BILIRUBIN,URINE NEGATIVE (NEGATIVE); BLOOD, URINE NEGATIVE Ery/uL (NEGATIVE); COLOR,URINE YELLOW (YELLOW); KETONES,URINE 1+ (NEGATIVE); LEUKOCYTE ESTERASE ,URINE TRACE (NEGATIVE); NITRITE, URINE NEGATIVE (NEGATIVE); PH,URINE 7.5 (5.0-8.0); PROTEIN,URINE TRACE mg/dl (NEGATIVE); UGLUCOSE 3+ mg/dL (NEGATIVE)
[2019-05-11 21:09] LABS: RBC,URINE 0-2 /HPF (0-2)
[2019-05-11 21:10] LABS: BACTERIA,URINE Few /HPF (None Seen); SQUAMOUS EPITHELIAL CELL,UR Few /HPF (None Seen)
--- NOTE | 2019-05-11 23:36 | NUR ---
RN NOTES FAMILY AT BEDSIDE REFUSED FOR MAGIC MOUTHWASH TO BE GIVEN AT THIS TIME SINCE Pt IS ASLEEP AND THEY DO NOT WANT HER TO BE DISTURBED.
--- NOTE | 2019-05-12 07:10 | NUR ---
RN CLOSING NOTES NO SIGNIFICANT CHANGES IN Pt's CONDITION. NO S/S OF ACUTE DISTRESS OR SEVERE SOB NOTED DURING THE NIGHT. ALL NEEDS MET AND ATTENDED TO. SAFETY MEASURES IN PLACE. TEMP HAS DECREASED TO 98.5F WILL ENDORSE TO DAYSHIFT RN FOR Pt's TREVON.
[2019-05-12 07:18] LABS: HEMATOCRIT 27 % (33-45); HEMOGLOBIN 8.9 g/dL (11.5-14.8); MEAN CORPUSCULAR HGB CONC 34 g/dl (31.0-36.0); MEAN CORPUSCULAR VOLUME 82 fL (82-100); RED BLOOD CELL COUNT(AUTO) 3.23 MIL/uL (4.0-5.2)
[2019-05-12 07:31] LABS: PLATELET COUNT (AUTO) 95 /CMM (150-450); WHITE BLOOD COUNT (AUTO) 0.3 K/uL (4.3-11.0)
[2019-05-12 07:37] LABS: CALCIUM, SERUM 6.4 mg/dL (8.5-10.1); CARBON DIOXIDE 26 mmol/L (21-32); CHLORIDE 95 mmol/L (98-107); CREATININE 0.6 mg/dL (0.6-1.3); GLUCOSE 306 mg/dL (74-106); PHOSPHORUS 1.4 mg/dL (2.5-4.9); POTASSIUM 3.1 mmol/L (3.5-5.1); SODIUM SERUM 130 mmol/L (136-145); UREA NITROGEN, BLOOD 5 mg/dL (7-18)
[2019-05-12 07:58] LABS: LYMPHOCYTES % (MANUAL) 59 % (16-48); MONOCYTES % (MANUAL) 27 % (0-11.0); NEUTROPHILS % (MANUAL) 14 (42-76)
[2019-05-12 08:00] VITALS: BP 138/68
--- NOTE | 2019-05-12 08:00 | NUR ---
m/s cloth drier: initial assessment received pt in bed with eyes close, arousable but appears weak. reverse isolation precaution maintained. no s/s of discomfort. breakfast served, but pt refusing to eat at this time. will continue to monitor.
[2019-05-12] MEDS: FLUCONAZOLE (100 MG) 100 MG TABLET PO SCH (08:31)
[2019-05-12] MEDS: MAGIC MOUTHWASH PO SCH ×4 (08:32→21:21)
[2019-05-12] MEDS: MAGNESIUM OXIDE 400 MG TABLET PO SCH ×3 (08:32→17:03)
[2019-05-12] MEDS: IV D5/0.45 NACL 1,000 ML IV PRN (08:33)
[2019-05-12] MEDS: CEFEPIME 1 GM in IV D5W 50 ML IV SCH ×2 (08:42→21:22)
[2019-05-12] MEDS: FAMOTIDINE/PF INJ 20 MG/2 ML VIAL IV SCH ×2 (08:42→20:33)
[2019-05-12] MEDS: MUPIROCIN OINT 2% 22 GM TUBE SCH ×2 (08:51→20:36)
[2019-05-12] MEDS: MORPHINE SULFATE INJ 2 MG/ML DISP.SYRIN IV PRN ×3 (09:02→20:33)
--- NOTE | 2019-05-12 09:02 | NUR ---
m/s dredge pipe operator: notes pt c/o 07/21 generalized discomfort. medicated with morphine 2mg ivp by rn. instructed to call for assistance.
--- NOTE | 2019-05-12 09:32 | NUR ---
m/s manager harbor: notes pt in bed with eyes close, no s/s of distress and appears comfortable. will continue to monitor.
--- NOTE | 2019-05-12 10:00 | NUR ---
m/s woodworker helper: md visit seen and examined by dr. parker. pt for cardiac consult. dr. gotti notified and made aware.
--- NOTE | 2019-05-12 10:45 | NUR ---
m/s phys asst: cardio consult seen and examined by dr. gotti at this time re: cardiac clearance with new order. order acknowledged.
--- NOTE | 2019-05-12 10:55 | NUR ---
m/s inclined railway operator: notes 2 sons visiting at this time and informed them or new order for us guided thoracentesis and consent needed for it. educated son re: us guided and will have to call another brother and then will decide today.
--- NOTE | 2019-05-12 11:15 | NUR ---
m/s dry house operator: notes f/u made to pharmacy, spoke to madeleine re: granix medication. awaiting for differential results as stated.
--- NOTE | 2019-05-12 11:30 | NUR ---
m/s sexual abuse counsellor: notes 2d echo completed with 70% ef per tech. magallanes remains at bedside.
[2019-05-12] MEDS: POTASSIUM CHLORIDE 20 MEQ POWDER PACKET PO SCH ×2 (11:39→13:47)
--- NOTE | 2019-05-12 11:45 | NUR ---
m/s parimutuel ticket checker: notes pt cannot tolerate magic mouthwash when offered, pt takes little and unable to tolerate the rest.
--- NOTE | 2019-05-12 12:00 | NUR ---
m/s merchandiser seasonal: notes 2 sons at bedside still awaiting for boone (brother, dpoa) to make decision on consenting for us guided thoracentesis. Left message to son/Boone ([phone]) via voice mail.
[2019-05-12] MEDS: TBO-FILGRASTIM 300 MCG/0.5 ML SYRINGE SQ SCH (12:07)
--- NOTE | 2019-05-12 12:30 | NUR ---
m/s parcel post weigher: familia mayfield ([employer]) called and informed her that we still don't have the consent from the son and will call her once we get the consent.
[2019-05-12] MEDS ORDERED: Sodium Phosphate 15 MMOL in IV D5W 250 ML IV ONE ×2 (13:30→18:00)
--- NOTE | 2019-05-12 14:28 | NUR ---
m/s carpenter repair: notes Left another message tp son/Boone ([phone]) re: consent needed for us guided thoracentesis via voice mail.
[2019-05-12 16:00] VITALS: BP 129/71
--- NOTE | 2019-05-12 16:00 | NUR ---
m/s shredder/granulator operator: notes 2 sons came back to visit, but still no fara. informed the brothers that i'm still awaiting on consent for us guided thoracentesis. will continue to monitor.
--- NOTE | 2019-05-12 16:18 | NUR ---
m/s masonry contractor administrator: notes pt c/o 06/20 generalized discomfort. medicated with morphine 2mg ivp by rn. instructed to call for assistance.
--- NOTE | 2019-05-12 16:48 | NUR ---
m/s volunteer services specialist: notes pt in bed with eyes close, no s/s of distress and appears comfortable. will continue to monitor.
--- NOTE | 2019-05-12 17:08 | NUR ---
m/s mathematics lecturer: notes pt appears to be sleepy, but easily arousable. encourage to take magic mouthwash and due med, but pt keeps saying no x 3. will continue to monitor.
--- NOTE | 2019-05-12 17:30 | NUR ---
m/s dramatic art teacher: id f/u seen by luciano (telecine operator) at this time.
--- NOTE | 2019-05-12 18:47 | NUR ---
m/s coal feeder operator: notes 2 sons remains at bedside and still awaiting for fara (violeta) to come tonight. still needs consent for us guided thoracentesis. per 2 sons there's going to be another brother to come in and will decide tonight. needs attended.
--- NOTE | 2019-05-12 18:51 | NUR ---
m/s hoop cutter: jute bag cutting machine operator/oncologist dr. jon at bedside at this time and talking to the sons.
--- NOTE | 2019-05-12 19:10 | NUR ---
m/s construction teacher: notes report given to karen ahuja) for continuity of care.
--- NOTE | 2019-05-12 19:45 | NUR ---
CHIDI MILLAN Addendum: 05/12/19 at 2000 by REENA STERN RN RN OPENING NOTES RECEIVED REPORT FROM [facility] CHIDI MORALES. FOUND Pt RESTING IN BED, FAMILY VISITING AT BEDSIDE. NO S/S OF ACUTE DISTRESS OR SEVERE SOB NOTED. Pt IS A/OX2. IV ACCESS ON NAVARRO PICC LINE #18G, IVF D5 1/2NS @75ML/HR. PER REPORT TEMP IS 99.4F. PER SON SAID THAT ONCOLOGIST WAS HERE EARLIER AND SAID THAT SHE WILL ADJUST THE TIME FREQUENCY FOR THE MORPHINE. WILL CALL DR ALBERTO TO VERIFY. SAFETY MEASURES IN PLACE. BED LOW, LOCKED, HOB ELEVATED, SIDE RAILS UP, CALL LIGHT AND BEDSIDE TABLE WITHIN REACH. WILL CONTINUE TO MONITOR Pt's CONDITION AND SAFETY THROUGHOUT THE NIGHT.
--- NOTE | 2019-05-12 19:49 | NUR ---
RN NOTES PER Pt's SON, SAID HE SPOKE WITH THE ONCOLOGIST IN THE ROOM ABOUT AN HOUR AGO AND SAID THAT SHE WILL ADJUST THE TIME FREQUENCY FOR MORPHINE 2MG, AND WAS ASKING IF THE ORDER WAS CHANGED. CHECKED THE eMAR AND SAW THAT THERE WAS NO NEW ORDER FOR THE TIME FREQUENCY OF MORPHINE. CALLED DR ALBERTO AND SPOKE WITH DR. ALBERTO ON THE PHONE, TO VERIFY, PER DR ALBERTO SAID IT IS OK TO CHANGE THE FREQUENCY OF MORPHINE 2MG TO Q4H PRN. WILL CARRY OUT ORDER.
[2019-05-12 20:00] VITALS: BP 134/62
[2019-05-12 20:11] VITALS: BP 134/62
[2019-05-12] MEDS ORDERED: FEE PK DOSING 1 MIN EA MC ONE (20:52)
[2019-05-12] MEDS: VANCOMYCIN 1 GM in IV D5W 250 ML IV SCH (22:24)
--- NOTE | 2019-05-12 22:27 | NUR ---
rn notes sodium phosphate was running at the same time when maxipime and vanco were both due @2100. sodium phosphate will be running for 4hrs, from start time of 1820, end time should be around 2220. Maxipime was started on 2nd line of picc line. once maxipime was finised started vanco.
[2019-05-13] MEDS: MORPHINE SULFATE INJ 2 MG/ML DISP.SYRIN IV PRN ×4 (02:15→22:57)
--- NOTE | 2019-05-13 06:50 | NUR ---
RN CLOSING NOTES NO SIGNIFICANT CHANGES IN Pt's CONDITION. NO S/S OF ACUTE DISTRESS OR SEVERE SOB NOTED DURING THE NIGHT. ALL NEEDS MET AND ATTENDED TO. SAFETY MEASURES IN PLACE. WILL ENDORSE TO DAYSHIFT RN FOR Pt's TREVON. WAITING ON FAMILY TO CONSENT TO US GUIDED THORACENTESIS.
--- NOTE | 2019-05-13 07:45 | NUR ---
RN OPENING NOTES REC PT. PT STABLE RESTING IN BED. NO S/S OF RESP DISTRESS/SOB. PT IS ON ASPIRATION PREC, DYSPHAGIA R/T ESOPHAGEAL CA/TUMOR. FAMILY REMAINS UNDECIDED REGARDING BOTH THORACENTESIS AND PEG PLACEMENT. ST F/U TO OCCUR IN AM. PT IS ON NEUTROPENIC PRECAUTIONS WITH LAST WBC ON 05/12/19 RESULTED >1. SAFETY MEASURES IN PLACE, CALL LIGHT WITHIN REACH. WILL CONT TO MONITOR.
[2019-05-13 08:00] VITALS: BP 119/53
[2019-05-13 08:04] LABS: BASOPHILS % (AUTO) 0.5 % (0.0-2.0); EOSINOPHILS % (AUTO) 1.1 % (0.0-6.0); HEMATOCRIT 26 % (33-45); HEMOGLOBIN 8.7 g/dL (11.5-14.8); LYMPHOCYTES # (AUTO) 0.4 /CMM (0.8-4.8); LYMPHOCYTES % (AUTO) 16.2 % (20.0-44.0); MEAN CORPUSCULAR HGB CONC 33 g/dl (31.0-36.0); MEAN CORPUSCULAR VOLUME 82 fL (82-100); MONOCYTES # (AUTO) 0.3 /CMM (0.1-1.30); MONOCYTES % (AUTO) 14.8 % (2.0-12.0); NEUTROPHILS # (AUTO) 1.5 /CMM (1.8-8.9); NEUTROPHILS % (AUTO) 67.4 % (43.0-81.0); PLATELET COUNT (AUTO) 109 /CMM (150-450); RED BLOOD CELL COUNT(AUTO) 3.16 MIL/uL (4.0-5.2); WHITE BLOOD COUNT (AUTO) 2.2 K/uL (4.3-11.0)
[2019-05-13 08:06] LABS: CALCIUM, SERUM 6.9 mg/dL (8.5-10.1); CARBON DIOXIDE 28 mmol/L (21-32); CHLORIDE 96 mmol/L (98-107); CREATININE 0.7 mg/dL (0.6-1.3); PHOSPHORUS 2.4 mg/dL (2.5-4.9); POTASSIUM 2.9 mmol/L (3.5-5.1); SODIUM SERUM 132 mmol/L (136-145); UREA NITROGEN, BLOOD 5 mg/dL (7-18)
[2019-05-13 08:12] LABS: GLUCOSE 354 mg/dL (74-106)
[2019-05-13 08:14] LABS: MAGNESIUM 1.1 mg/dL (1.8-2.4)
[2019-05-13] MEDS: MAGIC MOUTHWASH PO SCH ×4 (08:21→22:00)
[2019-05-13] MEDS: FAMOTIDINE/PF INJ 20 MG/2 ML VIAL IV SCH ×2 (08:21→22:34)
[2019-05-13] MEDS: CEFEPIME 1 GM in IV D5W 50 ML IV SCH ×2 (08:21→22:34)
[2019-05-13] MEDS: MUPIROCIN OINT 2% 22 GM TUBE SCH ×2 (08:29→22:39)
[2019-05-13 08:59] LABS: BAND % (MANUAL) 2 % (0.0-5.0); LYMPHOCYTES % (MANUAL) 12 % (16-48); MONOCYTES % (MANUAL) 10 % (0-11.0); NEUTROPHILS % (MANUAL) 76 (42-76)
[2019-05-13] MEDS ORDERED: POTASSIUM PHOSPHATE MM 15 MMOL in IV D5W 250 ML IV SCH (09:00)
[2019-05-13] MEDS: Magnesium 1GM/D5W 100ML PREMIX 100 ML IV SCH ×4 (09:05→12:20)
[2019-05-13] MEDS: POTASSIUM CL. PREMIX PERIPHER. 50 ML IV SCH ×6 (09:05→15:26)
[2019-05-13] MEDS: MAGNESIUM OXIDE 400 MG TABLET PO SCH ×2 (09:20→17:00)
[2019-05-13] MEDS: FLUCONAZOLE (100 MG) 100 MG TABLET PO SCH (09:20)
--- NOTE | 2019-05-13 10:00 | NUR ---
RN NOTES CRITICAL MAG (1.1) AND GLUCOSE (354), PER AM LABS. REPLACEMENTS FOR MAG ORDERED.
[2019-05-13] MEDS: TBO-FILGRASTIM 300 MCG/0.5 ML SYRINGE SQ SCH (12:19)
--- NOTE | 2019-05-13 14:05 | NUR ---
AT 2 PM I TALKED TO CHIDI BENOIT , FAMILY MEMBERS DID NOT DECIDE IF THEY WANT TO DO THE PROCEDURE, WAITING FOR NEW INSTRUCTIONS
[2019-05-13] MEDS: VANCOMYCIN 1 GM in IV D5W 250 ML IV SCH (15:26)
[2019-05-13 16:00] VITALS: BP 134/60
[2019-05-13] MEDS: GLUCERNA SHAKE 237 ML CAN PO SCH (17:00)
[2019-05-13] MEDS ORDERED: GLUCERNA SHAKE 237 ML CAN PO SCH (17:00)
--- NOTE | 2019-05-13 18:30 | NUR ---
RN CLOSING NOTE PT STABLE. ALL PT NEEDS ANTICIPATED AND MET. PT'S FAMILY AGREEABLE TO THORACENTESIS, CONSENT SIGNED AND PLACED IN CHART. SAFETY MEASURES IN PLACE, CALL LIGHT IN REACH. WILL ENDORSE TO REINSURANCE ANALYST FOR TREVON.
--- NOTE | 2019-05-13 19:50 | NUR ---
RN OPENING NOTES RECEIVED REPORT FROM SUKHI RNJOYCE. FOUND Pt ASLEEP IN BED. FAMILY VISITING AT BED SIDE. RESPIRATIONS EVEN AND UNLABORED WITH EQUAL CHEST RISE. Pt IS A/OX1-2, VERBAL. IV ACCESS ON NAVARRO PICC LINE @ TKO. SAFETY MEASURES IN PLACE. BED LOW, LOCKED, HOB ELEVATED, SIDE RAILS UP, CALL LIGHT AND BEDSIDE TABLE WITHIN REACH. BED ALARM ON. WILL CONTINUE TO MONITOR Pt's CONDITION AND SAFETY THROUGHOUT THE NIGHT.
[2019-05-13 20:00] VITALS: BP 141/64
[2019-05-14] VITALS (9 sets, daily range): BP systolic 125–154; BP diastolic 60–75
--- NOTE | 2019-05-14 06:45 | NUR ---
RN CLOSING NOTES NO SIGNIFICANT CHANGES IN Pt's CONDITION. NO S/S OF ACUTE DISTRESS OR SEVERE SOB NOTED DURING THE NIGHT. ALL NEEDS MET AND ATTENDED TO. SAFETY MEASURES IN PLACE. WILL ENDORSE TO DAYSHIFT RN FOR Pt's TREVON. THORACENTESIS SCHEDULED FOR TODAY, CONSENT SIGNED BY SON, PLACED IN CHART.
[2019-05-14 07:31] LABS: CALCIUM, SERUM 7.6 mg/dL (8.5-10.1); CARBON DIOXIDE 29 mmol/L (21-32); CHLORIDE 97 mmol/L (98-107); CREATININE 0.7 mg/dL (0.6-1.3); GLUCOSE 279 mg/dL (74-106); POTASSIUM 3.6 mmol/L (3.5-5.1); SODIUM SERUM 133 mmol/L (136-145); UREA NITROGEN, BLOOD 4 mg/dL (7-18)
[2019-05-14] MEDS: GLUCERNA SHAKE 237 ML CAN PO SCH ×3 (08:27→16:57)
[2019-05-14] MEDS: MAGIC MOUTHWASH PO SCH ×4 (08:27→21:43)
[2019-05-14] MEDS: CEFEPIME 1 GM in IV D5W 50 ML IV SCH ×2 (08:31→21:42)
[2019-05-14] MEDS: FAMOTIDINE/PF INJ 20 MG/2 ML VIAL IV SCH ×2 (08:40→21:42)
[2019-05-14] MEDS: FLUCONAZOLE (100 MG) 100 MG TABLET PO SCH (08:40)
[2019-05-14] MEDS: MAGNESIUM OXIDE 400 MG TABLET PO SCH ×2 (08:41→16:58)
[2019-05-14] MEDS: MORPHINE SULFATE INJ 2 MG/ML DISP.SYRIN IV PRN (08:42)
--- NOTE | 2019-05-14 08:50 | NUR ---
M/S RN NOTES PATIENT LYING IN BED AWAKE, FAMILY AT BEDSIDE. PATIENT IN NO RESPIRATORY DISTRESS, ON NASAL CANULA 02 AT 3L. PATIENT C/O GENERALIZED PAIN LEVEL OF 8/10, PAIN MEDICATION GIVEN PRESCRIBED, WILL REASSESS. IV PICC LINE INTACT AND PATENT, NO REDNESS, NO INFILTRATION. SKIN WARM TO TOUCH. PATIENT'S NEEDS ATTENDED. BED ON LOWEST AND LOCKED POSITION. WILL CONTINUE TO MONITOR.
[2019-05-14] MEDS: VANCOMYCIN 1 GM in IV D5W 250 ML IV SCH (09:32)
[2019-05-14] MEDS: MUPIROCIN OINT 2% 22 GM TUBE SCH ×2 (09:36→21:44)
--- NOTE | 2019-05-14 10:40 | NUR ---
M/S RN NOTES INFORMED BY JERRY FROM RADIOLOGY THAT THERE'S NO RADIOLOGIST ON SITE, IF THORACENTESIS CAN BE DONE TOMORROW AM. NOTIFIED DR. RAMSAY AND WAS OKAY TO BE DONE TOMORROW MORNING PER DR. RAMSAY.
[2019-05-14 12:01] LABS: BASOPHILS % (AUTO) 0.6 % (0.0-2.0); EOSINOPHILS % (AUTO) 0.4 % (0.0-6.0); HEMATOCRIT 23 % (33-45); LYMPHOCYTES # (AUTO) 0.5 /CMM (0.8-4.8); LYMPHOCYTES % (AUTO) 6.2 % (20.0-44.0); MEAN CORPUSCULAR HGB CONC 30 g/dl (31.0-36.0); MEAN CORPUSCULAR VOLUME 92 fL (82-100); MONOCYTES # (AUTO) 0.3 /CMM (0.1-1.30); MONOCYTES % (AUTO) 3.4 % (2.0-12.0); NEUTROPHILS # (AUTO) 7.6 /CMM (1.8-8.9); NEUTROPHILS % (AUTO) 89.4 % (43.0-81.0); PLATELET COUNT (AUTO) 127 /CMM (150-450); RED BLOOD CELL COUNT(AUTO) 2.47 MIL/uL (4.0-5.2); WHITE BLOOD COUNT (AUTO) 8.5 K/uL (4.3-11.0)
[2019-05-14 12:18] LABS: HEMOGLOBIN 6.9 g/dL (11.5-14.8)
--- NOTE | 2019-05-14 12:39 | NUR ---
M/S RN NOTES DR. RAMSAY NOTIFIED PATIENT'S HGB AT 6.9 AND HCT AT 23, ORDERED [address] RAMSAY.
[2019-05-14 12:52] LABS: BAND % (MANUAL) 18 % (0.0-5.0); LYMPHOCYTES % (MANUAL) 3 % (16-48); METAMYELOCYTES % 4 % (0-0); MONOCYTES % (MANUAL) 3 % (0-11.0); MYELOCYTES % 2 % (0-0); NEUTROPHILS % (MANUAL) 70 (42-76)
[2019-05-14] MEDS: TBO-FILGRASTIM 300 MCG/0.5 ML SYRINGE SQ SCH (13:20)
--- NOTE | 2019-05-14 18:50 | NUR ---
M/S RN NOTES BLOOD TRANSFUSION STARTED AT 1835, V/S CHECKED. PATIENT WITH NO SIGNS OF ADVERSE REACTIONS, NO RESPIRATORY DISTRESS.
--- NOTE | 2019-05-14 19:25 | NUR ---
M/S RN NOTES PATIENT IN NO RESPIRATORY DISTRESS, NO C/O PAIN AT THIS TIME. BLOOD TRANSFUSION INFUSING, TOLERATING WELL. NO S/S OF ADVERSE REACTIONS. SKIN WARM TO TOUCH. PATIENT'S NEEDS ATTENDED. BED ON LOWEST LOCKED POSITION, CALL LIGHT WITHIN REACH. FAMILY AT BEDSIDE. ENDORSED TO ONCOMING NURSE.
--- NOTE | 2019-05-14 19:48 | NUR ---
RN MS OPENING NOTES RECEIVED PATIENT IN BED AWAKE, ALERT AND ORIENTED X1-2, VERBALLY RESPONSIVE. FAMILY AT BEDSIDE. BREATHING EVEN AND UNLABORED. NO SOB NOTED. ON 2LPM VIA NC. CURRENTLY WITH NO COMPLAINTS OF PAIN OR DISCOMFORT. NO FACIAL GRIMACING. RIGHT UPPER ARM PICC LINE INTACT AND PATENT WITH BLOOD TRANSFUSION STILL ONGOING. PATIENT SHOWS ON S/SX OF ADVERSE EFFECTS FROM BLOOD TRANSFUSION. VSS. SKIN DRY AND WARM TO TOUCH. AFEBRILE. ALL OTHER NEEDS ATTENDED TO . SAFETY MEASURES IN PLACE. CALL LIGHT WITHIN REACH. WILL CONTINUE TO MONITOR.
--- NOTE | 2019-05-14 21:04 | NUR ---
RN MS NOTES BLOOD TRANSFUSION STILL ON GOING. VSS. NO S/SX OF ADVERSE EFFECTS. WILL CONTINUE TO MONITOR.
--- NOTE | 2019-05-14 22:05 | NUR ---
CHIDI MS NOTES PATIENT IS S/P BLOOD TRANSFUSION. VSS. NO S/SX OF ADVERSE EFFECTS. WILL CONTINUE TO MONITOR.
[2019-05-15] MEDS: VANCOMYCIN 1 GM in IV D5W 250 ML IV SCH ×2 (03:32→21:47)
--- NOTE | 2019-05-15 06:08 | NUR ---
RN MS NOTES CALLED SPOUSE, ASUNCION, FOR CONSENT FOR ANESTHESIA, FOR THORACENTESIS PROCEDURE TODAY. DID NOT ANSWER. LEFT VM.
--- NOTE | 2019-05-15 07:02 | NUR ---
RN MS CLOSING NOTES PATIENT RESTING IN BED. NOT IN ANY DISTRESS. BREATHING EVEN AND UNLABORED. NO SOB NOTED. NO S/S OF PAIN OR DISCOMFORT. NO FACIAL GRIMACING. RIGHT UPPER ARM PICC LINE INTACT AND PATENT. S/P BLOOD TRANSFUSION LAST NIGHT WITH NO ADVERSE EFFECTS NOTED. SKIN DRY AND WARM TO TOUCH. AFEBRILE. ALL OTHER NEEDS ATTENDED TO. KEPT CLEAN DRY AND COMFORTABLE. SAFETY MEASURES IN PLACE. CALL LIGHT WITHIN REACH. WILL ENDORSE TO ONCOMING NURSE FOR TREVON.
[2019-05-15 07:48] LABS: BASOPHILS % (AUTO) 0.2 % (0.0-2.0); EOSINOPHILS % (AUTO) 0.2 % (0.0-6.0); HEMATOCRIT 31 % (33-45); HEMOGLOBIN 10.3 g/dL (11.5-14.8); LYMPHOCYTES # (AUTO) 0.7 /CMM (0.8-4.8); MEAN CORPUSCULAR HGB CONC 33 g/dl (31.0-36.0); MEAN CORPUSCULAR VOLUME 82 fL (82-100); MONOCYTES # (AUTO) 0.8 /CMM (0.1-1.30); MONOCYTES % (AUTO) 4.5 % (2.0-12.0); NEUTROPHILS # (AUTO) 16.4 /CMM (1.8-8.9); NEUTROPHILS % (AUTO) 91.1 % (43.0-81.0); PLATELET COUNT (AUTO) 180 /CMM (150-450); RED BLOOD CELL COUNT(AUTO) 3.81 MIL/uL (4.0-5.2)
[2019-05-15 07:53] LABS: CALCIUM, SERUM 7.9 mg/dL (8.5-10.1); CARBON DIOXIDE 30 mmol/L (21-32); CHLORIDE 96 mmol/L (98-107); CREATININE 0.7 mg/dL (0.6-1.3); GLUCOSE 296 mg/dL (74-106); MAGNESIUM 1.3 mg/dL (1.8-2.4); PHOSPHORUS 2.1 mg/dL (2.5-4.9); POTASSIUM 3.2 mmol/L (3.5-5.1); SODIUM SERUM 132 mmol/L (136-145); UREA NITROGEN, BLOOD 5 mg/dL (7-18)
[2019-05-15 08:00] VITALS: BP 132/72
[2019-05-15] MEDS: GLUCERNA SHAKE 237 ML CAN PO SCH ×3 (08:07→17:23)
[2019-05-15] MEDS: MAGIC MOUTHWASH PO SCH ×4 (08:07→21:47)
[2019-05-15] MEDS: CEFEPIME 1 GM in IV D5W 50 ML IV SCH ×2 (08:34→20:57)
[2019-05-15] MEDS: MORPHINE SULFATE INJ 2 MG/ML DISP.SYRIN IV PRN (08:35)
[2019-05-15] MEDS: FAMOTIDINE/PF INJ 20 MG/2 ML VIAL IV SCH ×2 (08:35→20:57)
[2019-05-15] MEDS: MAGNESIUM OXIDE 400 MG TABLET PO SCH ×2 (08:35→17:27)
[2019-05-15] MEDS: FLUCONAZOLE (100 MG) 100 MG TABLET PO SCH (08:35)
--- NOTE | 2019-05-15 08:40 | NUR ---
M/S RN NOTES PATIENT AWAKE, LYING IN BED. ALERT AND ORIENTED X2, SON AT BEDSIDE. PATIENT IN NO RESPIRATORY DISTRESS, ON NASAL CANULA 02 AT 2L. PATIENT COMPLAINING OF BACK PAIN, UNABLE TO SCALE BUT PATIENT MOANING AND GRASPING SITE, GIVEN MORPHINE IV, WILL REASSESS. SKIN WARM TO TOUCH. IV PICC LINE ON THE NAVARRO INTACT AND PATENT. PATIENT'S NEEDS ATTENDED, BED ON LOWEST LOCKED POSITION, CALL LIGHT WITHIN REACH. WILL CONTINUE TO MONITOR.
[2019-05-15] MEDS: MUPIROCIN OINT 2% 22 GM TUBE SCH ×2 (08:56→20:58)
[2019-05-15 09:02] LABS: LYMPHOCYTES % (MANUAL) 7 % (16-48); MONOCYTES % (MANUAL) 13 % (0-11.0); NEUTROPHILS % (MANUAL) 80 (42-76)
--- NOTE | 2019-05-15 11:10 | NUR ---
M/S RN NOTES THORACENTESIS DONE WITH FLUID TOTAL OF 560ML. PATIENT TOLERATED IT WELL. PLEURAL FLUID SENT TO LAB FOR CULTURE STUDIES.
[2019-05-15] MEDS: POTASSIUM CHLORIDE 20 MEQ TAB.PRT.SR PO SCH ×2 (12:49→14:32)
[2019-05-15] MEDS: Magnesium 1GM/D5W 100ML PREMIX 100 ML IV SCH ×4 (12:49→17:22)
[2019-05-15 16:00] VITALS: BP 144/71
[2019-05-15] MEDS ORDERED: NEUTRA PHOS 1 POWD.PACKET PO ONE (17:30)
--- NOTE | 2019-05-15 18:02 | NUR ---
M/S RN NOTES PATIENT AWAKE, LYING IN BED, FAMILY AT BEDSIDE. PATIENT IN NO RESPIRATORY DISTRESS NOTED, ON NASAL CANULA 02 AT 2L. NO C/O PAIN AT THIS TIME. IV MAGNESIUM INFUSING AT 100ML/HR ON THE NAVARRO PICC LINE, PATENT AND INTACT. PATIENT'S NEEDS ATTENDED. BED ON LOWEST LOCKED POSITION, CALL LIGHT WITHIN REACH. WILL ENDORSE TO ONCOMING NURSE.
--- NOTE | 2019-05-15 19:30 | NUR ---
RN OPEN NOTES RECEIVED PATIENT RESTING IN BED WITH FAMILY AT BEDSIDE, EASILY AROUSABLE. A/O X2. NO SIGNS OF DISTRESS OR DISCOMFORT. BREATHING EVEN AND UNLABORED. ON 3LPM O2 VIA NC. HAS NAVARRO PICC LINE WITH MAGNESIUM INFUSING, PATENT AND INTACT, NO SIGNS OF REDNESS OR INFILTRATION. DENIES ANY PAIN AT THIS TIME. BED IN LOW LOCKED POSITION WITH SIDE RAILS X2. CALL LIGHT WITHIN REACH. WILL CONTINUE TO MONITOR.
[2019-05-15 20:00] VITALS: BP 138/75
--- NOTE | 2019-05-16 07:25 | NUR ---
RN CLOSING NOTES PATIENT RESTING IN BED, EASILY AROUSABLE. A/O X2. NO SIGNS OF DISTRESS OR DISCOMFORT. BREATHING EVEN AND UNLABORED. ON 3LPM O2 VIA NC. HAS NAVARRO PICC LINE, PATENT AND INTACT, NO SIGNS OF REDNESS OR INFILTRATION. DENIES ANY PAIN AT THIS TIME. ALL NEEDS MET. NO SIGNIFICANT CHANGES THROUGH THE NIGHT. PATIENT KEPT CLEAN DRY AND COMFORTABLE. REPOSITIONED Q2H AND PRN. BED IN LOW LOCKED POSITION WITH SIDE RAILS X2. CALL LIGHT WITHIN REACH. WILL ENDORSE TO AM SHIFT FOR TREVON.
[2019-05-16 07:28] LABS: BASOPHILS % (AUTO) 0.2 % (0.0-2.0); EOSINOPHILS % (AUTO) 0.3 % (0.0-6.0); HEMATOCRIT 30 % (33-45); LYMPHOCYTES # (AUTO) 0.5 /CMM (0.8-4.8); LYMPHOCYTES % (AUTO) 5.6 % (20.0-44.0); MEAN CORPUSCULAR HGB CONC 33 g/dl (31.0-36.0); MEAN CORPUSCULAR VOLUME 83 fL (82-100); MONOCYTES # (AUTO) 0.6 /CMM (0.1-1.30); MONOCYTES % (AUTO) 6.3 % (2.0-12.0); NEUTROPHILS # (AUTO) 7.7 /CMM (1.8-8.9); NEUTROPHILS % (AUTO) 87.6 % (43.0-81.0); PLATELET COUNT (AUTO) 188 /CMM (150-450); RED BLOOD CELL COUNT(AUTO) 3.64 MIL/uL (4.0-5.2); WHITE BLOOD COUNT (AUTO) 8.8 K/uL (4.3-11.0)
[2019-05-16] MEDS: MAGIC MOUTHWASH PO SCH ×4 (07:30→21:41)
[2019-05-16 07:40] LABS: CALCIUM, SERUM 7.9 mg/dL (8.5-10.1); CARBON DIOXIDE 31 mmol/L (21-32); CHLORIDE 96 mmol/L (98-107); CREATININE 0.7 mg/dL (0.6-1.3); GLUCOSE 327 mg/dL (74-106); MAGNESIUM 1.6 mg/dL (1.8-2.4); PHOSPHORUS 2.5 mg/dL (2.5-4.9); POTASSIUM 3.1 mmol/L (3.5-5.1); SODIUM SERUM 135 mmol/L (136-145); UREA NITROGEN, BLOOD 6 mg/dL (7-18)
[2019-05-16 08:00] VITALS: BP 151/68
[2019-05-16] MEDS: GLUCERNA SHAKE 237 ML CAN PO SCH ×3 (08:00→17:00)
[2019-05-16] MEDS: MAGNESIUM OXIDE 400 MG TABLET PO SCH ×2 (09:00→17:45)
[2019-05-16] MEDS: MORPHINE SULFATE INJ 2 MG/ML DISP.SYRIN IV PRN ×2 (09:10→20:09)
[2019-05-16] MEDS: POTASSIUM CHLORIDE 20 MEQ POWDER PACKET GT SCH ×2 (09:30→10:30)
[2019-05-16] MEDS: FAMOTIDINE/PF INJ 20 MG/2 ML VIAL IV SCH ×2 (10:25→21:32)
[2019-05-16] MEDS: CEFEPIME 1 GM in IV D5W 50 ML IV SCH ×2 (10:25→21:32)
[2019-05-16] MEDS: FLUCONAZOLE (100 MG) 100 MG TABLET PO SCH ×2 (10:30→17:45)
[2019-05-16] MEDS: MUPIROCIN OINT 2% 22 GM TUBE SCH (10:31)
[2019-05-16] MEDS ORDERED: Insulin Glargine,Hum SQ (10:33)
[2019-05-16] MEDS ORDERED: VANC1PIG IV (10:33)
[2019-05-16] MEDS ORDERED: FLUC100T8 PO (10:33)
[2019-05-16] MEDS ORDERED: CEFE1FRO IV (10:33)
[2019-05-16 11:25] LABS: BAND % (MANUAL) 10 % (0.0-5.0); LYMPHOCYTES % (MANUAL) 3 % (16-48); METAMYELOCYTES % 5 % (0-0); MONOCYTES % (MANUAL) 10 % (0-11.0); MYELOCYTES % 8 % (0-0); NEUTROPHILS % (MANUAL) 64 (42-76)
--- NOTE | 2019-05-16 11:30 | NUR ---
sons alternating sitting in with pt.pt. remains in isolation.blanche kitchen manager spoke with one of son's regarding pt. status.
[2019-05-16] MEDS: POTASSIUM CL. PREMIX PERIPHER. 50 ML IV SCH ×4 (11:59→18:47)
--- NOTE | 2019-05-16 12:44 | NUR ---
aware of abnormal labs kcl replacement started
--- NOTE | 2019-05-16 12:47 | NUR ---
case mgmt. in to talk with son.
[2019-05-16] MEDS: VANCOMYCIN 1 GM in IV D5W 250 ML IV SCH (15:49)
[2019-05-16 16:00] VITALS: BP 140/64
--- NOTE | 2019-05-16 18:00 | NUR ---
no chg. in status,inf. simon caceres in to see pt.given status report on pt.
--- NOTE | 2019-05-16 19:58 | NUR ---
MS/RN CALLED [facility], VINAY GROVER NP, IS FIRE EQUIPMENT OPERATOR, RE: MAGNESIUM LEVEL 1.6 WAS NOT REPLACED.
[2019-05-16 20:00] VITALS: BP 137/74
--- NOTE | 2019-05-16 20:00 | NUR ---
MS/RN PATIENT IS AWAKE, MILDLY RESTLESS, PER SON THE PATIENT IS HAVING BACK PAIN 10/10 AND REQUESTED TO GIVE MORPHINE. MORPHINE 2 MG IVP WAS GIVEN ORDERED. WILL MONITOR.
--- NOTE | 2019-05-16 20:02 | NUR ---
MS/RN VINAY GROVER CALLED BACK INFORMED HIM ABOUT THE MAGNESIUM LEVEL OF 1.6, THAT THE PATIENT ONLY TOOK PART OF THE MAGNESIUM 800 PO. NO FURTHER ORDER WAS RECEIVED.
--- NOTE | 2019-05-16 20:30 | NUR ---
MS/RN PATIENT IS SLEEPING, AROUSABLE, APPEAR COMFORTABALE, NO DISTRESS NOTED, CALL LIGHT IN REACH. WILL CONTINUE TO MONITOR.
[2019-05-16] MEDS ORDERED: ACYCLOVIR IV 500 MG VIAL IV ONE (22:06)
[2019-05-16] MEDS: ACYCLOVIR IV 500 MG in IV D5W 100 ML IV SCH (22:23)
[2019-05-16] MEDS: INSULIN GLARGINE, 100 UNIT/ML CARTRIDGE SQ SCH (22:35)
--- NOTE | 2019-05-16 23:14 | NUR ---
MS/RN PATIENT IS SLEEPING, NO CHANGE IN CONDITION, ENDORSED TO CHIDI MCFARLANE FOR CONTINUITY OF CARE.
--- NOTE | 2019-05-16 23:30 | NUR ---
RN OPENING NOTES RECEIVED PATIENT FROM CHIDI BUCKNER. PATIENT IS CURRENTLY ASLEEP AT THIS TIME, EASILY AROUSABLE. A/O X 2. NO SIGNS OF RESPIRATORY DISTRESS. NO SIGNS OF SHORTNESS OF BREATH. ON 3LPM O2 VIA NC. HAS NAVARRO PICC LINE, PATENT AND INTACT. NO SIGNS OF REDNESS OR INFILTRATION. NO SIGNS OF FACIAL GRIMACING OR DISCOMFORT TO INDICATE ANY PAIN AT THIS TIME. SAFETY PRECAUTIONS IMPLEMENTED; CALL LIGHT WITHIN REACH, BED LOW, BED LOCKED, SIDE RAILS UP X2. WILL CONTINUE TO MONITOR PATIENT.
--- NOTE | 2019-05-17 04:46 | NUR ---
RN NOTES NO ACYCLOVIR IN STOCK. PAGED NURSING SUP, YULIYA. SHE SAID SHE WILL BRING IT. AWAITING MEDICATION.
[2019-05-17] MEDS: MORPHINE SULFATE INJ 2 MG/ML DISP.SYRIN IV PRN ×2 (05:03→14:09)
[2019-05-17] MEDS ORDERED: ACYCLOVIR IV 500 MG VIAL IV ONE (05:36)
[2019-05-17] MEDS: ACYCLOVIR IV 500 MG in IV D5W 100 ML IV SCH ×3 (05:40→20:40)
--- NOTE | 2019-05-17 07:07 | NUR ---
RN CLOSING NOTES PATIENT RESTING IN BED, EASILY AROUSABLE. A/O X 2. NO SIGNS OF RESPIRATORY DISTRESS OR DISCOMFORT. ON 3LPM O2 VIA NC. HAS NAVARRO PICC LINE, PATENT AND INTACT. NO SIGNS OF REDNESS OF INFILTRATION NOTED. NO COMPLAINTS OF PAIN OR DISCOMFORT AT THIS TIME. ALL NEEDS MET AT THIS TIME. NO ACUTE CHANGES THROUGHOUT THE SHIFT. PATIENT KEPT CLEAN, DRY, AND COMFORTABLE. PATIENT REPOSITIONED EVERY 2 HOURS AND NEEDED WHEN REQUESTED, Z GUARD APPLIED. SAFETY PRECAUTIONS IMPLEMENTED; CALL LIGHT WITHIN REACH, BED LOWEST POSITION, BED LOCKED, SIDE RAILS UP X2. WILL ENDORSE TO AM RN FOR CONTINUITY OF CARE.
[2019-05-17 07:19] LABS: BASOPHILS % (AUTO) 0.4 % (0.0-2.0); EOSINOPHILS % (AUTO) 0.6 % (0.0-6.0); HEMATOCRIT 29 % (33-45); HEMOGLOBIN 9.7 g/dL (11.5-14.8); LYMPHOCYTES # (AUTO) 0.5 /CMM (0.8-4.8); LYMPHOCYTES % (AUTO) 8.3 % (20.0-44.0); MEAN CORPUSCULAR HGB CONC 33 g/dl (31.0-36.0); MEAN CORPUSCULAR VOLUME 83 fL (82-100); MONOCYTES # (AUTO) 0.6 /CMM (0.1-1.30); MONOCYTES % (AUTO) 10.3 % (2.0-12.0); NEUTROPHILS # (AUTO) 4.5 /CMM (1.8-8.9); NEUTROPHILS % (AUTO) 80.4 % (43.0-81.0); PLATELET COUNT (AUTO) 181 /CMM (150-450); RED BLOOD CELL COUNT(AUTO) 3.52 MIL/uL (4.0-5.2); WHITE BLOOD COUNT (AUTO) 5.6 K/uL (4.3-11.0)
[2019-05-17 07:35] LABS: CARBON DIOXIDE 32 mmol/L (21-32); CHLORIDE 97 mmol/L (98-107); CREATININE 0.7 mg/dL (0.6-1.3); GLUCOSE 313 mg/dL (74-106); MAGNESIUM 1.4 mg/dL (1.8-2.4); PHOSPHORUS 2.7 mg/dL (2.5-4.9); POTASSIUM 3.3 mmol/L (3.5-5.1); SODIUM SERUM 133 mmol/L (136-145); UREA NITROGEN, BLOOD 8 mg/dL (7-18)
--- NOTE | 2019-05-17 07:35 | NUR ---
MS/RN NOTE RECEIVED THE PATIENT IN BED AND SLEEPING. THE PATIENT IS RESPONSIVE TO VERBAL AND TACTILE STIMULI. RECEIVING OXYGEN AT 3L/MIN VIA NASAL CANNULA AND SATURATION IS AT 96%. NAVARRO PICC LINE PATENT AND SALINE LOCKED. BED LOW AND LOCKED. SIDE RAILS UP X3. CALL LIGHT WITHIN REACH. WILL CONTINUE TO MONITOR.
[2019-05-17 07:36] LABS: IRON, SERUM 30 ug/dl (50-175); TOTAL IRON BINDING CAPACITY 98 ug/dl (250-450)
[2019-05-17 08:00] VITALS: BP 147/67
[2019-05-17] MEDS: GLUCERNA SHAKE 237 ML CAN PO SCH ×3 (08:00→17:00)
[2019-05-17] MEDS: FLUCONAZOLE IN NS 200 MG in PREMIX 1 EA IV SCH ×2 (08:30)
[2019-05-17] MEDS: FAMOTIDINE/PF INJ 20 MG/2 ML VIAL IV SCH ×2 (08:44→20:39)
[2019-05-17] MEDS: MAGNESIUM OXIDE 400 MG TABLET PO SCH ×2 (08:44→17:47)
[2019-05-17] MEDS: MAGIC MOUTHWASH PO SCH ×4 (09:05→22:09)
[2019-05-17] MEDS ORDERED: POTASSIUM CHLORIDE 20 MEQ TAB.PRT.SR PO SCH (09:30)
[2019-05-17 09:44] LABS: BAND % (MANUAL) 14 % (0.0-5.0); EOSINOPHILS % (MANUAL) 2 % (0-4); LYMPHOCYTES % (MANUAL) 9 % (16-48); METAMYELOCYTES % 2 % (0-0); MONOCYTES % (MANUAL) 12 % (0-11.0); MYELOCYTES % 9 % (0-0); NEUTROPHILS % (MANUAL) 52 (42-76)
[2019-05-17 10:10] LABS: FERRITIN 2172 ng/mL (8-388)
[2019-05-17] MEDS: CEFEPIME 1 GM in IV D5W 50 ML IV SCH ×2 (10:52→20:40)
[2019-05-17] MEDS: VANCOMYCIN 1 GM in IV D5W 250 ML IV SCH (11:32)
[2019-05-17] MEDS: Magnesium 1GM/D5W 100ML PREMIX 100 ML IV SCH ×4 (14:48→18:29)
[2019-05-17 16:00] VITALS: BP 176/63
[2019-05-17 17:40] VITALS: BP 145/72
--- NOTE | 2019-05-17 18:54 | NUR ---
MS/RN NOTE THE PATIENT ALERT AND ORIENTED X2. ABLE TO MAKE NEED SKNOWN VERBALLY. RECEIVING OXYGEN 3L/MIN VIA NASAL CANNULA AND SATURATION IS AT 97%. DENIES SOB. RESPIRATION REGULAR AND UNLABORED. DENIES PAIN. THE PATIENT IN NO APPARENT DISTRESS. NAVARRO PICC LINE PATENT AND MG INFUSING PER ORDER. NO S/S INFILTRATING NOTED. BED LOW AND LOCKED. SIDE RAILS UP X3. CALL LIGHT WITHIN REACH. WILL ENDORSE TO DIGITAL COMPUTER OPERATOR.
[2019-05-17 20:00] VITALS: BP 136/63
--- NOTE | 2019-05-17 20:04 | NUR ---
RN MS OPENING NOTE RECEIVED PT IN BED, AWAKE ALERT ORIENTED X2 ,FAMILY AT BEDSIDE. BREATHING EVEN AND UNLABORED ON 2L O2 NC, IN NO APPARENT PAIN OR DISCOMFORT AT THIS TIME, R UA PICCLINE IN PLACE. BED IN LOWEST LOCKED POSITION, CALL LIGHT WITHIN REACH AT ALL TIMES, WILL CONTINUE TO MONITOR FREQUENTLY
[2019-05-17] MEDS: INSULIN GLARGINE, 100 UNIT/ML CARTRIDGE SQ SCH (21:48)
[2019-05-18] MEDS: VANCOMYCIN 1 GM in IV D5W 250 ML IV SCH ×2 (02:47→20:45)
[2019-05-18] MEDS: ACYCLOVIR IV 500 MG in IV D5W 100 ML IV SCH ×3 (04:15→21:47)
--- NOTE | 2019-05-18 06:21 | NUR ---
RN MS CLOSING NOTE PT REMAINS IN BED, SLEEPING, EASILY AROUSED TO TOUCH ,SON AT BEDSIDE. BREATHING EVEN AND UNLABORED ON 2L O2 NC, IN NO APPARENT PAIN OR DISCOMFORT AT THIS TIME, R UA PICCLINE IN PLACE. BED IN LOWEST LOCKED POSITION, CALL LIGHT WITHIN REACH AT ALL TIMES, WILL ENDORSE TO DAY NURSE FOR TREVON
--- NOTE | 2019-05-18 07:30 | NUR ---
MS RN AM NOTE RECEIVED PT IN BED, AWAKE ALERT ORIENTED X2 , SON AT BEDSIDE. ON 3L O2 VIA NASAL CANULA, NO SO, NOT IN DISTRESS, RESPIRATION UNLABORED,NO APPARENT SIGNS OF PAIN OR DISCOMFORT AT THIS TIME, R UA PICCLINE IN PLACE, FLUSHES WELL, CDI DRESSING, SITE CLEAR, PUREED DIET/FEEDER. BED IN LOWEST LOCKED POSITION, CALL LIGHT WITHIN REACH AT ALL TIMES, WILL TURN AND REPOSITION Q 2HOURS. WILL CONTINUE TO MONITOR FREQUENTLY
[2019-05-18 08:00] VITALS: BP_SYST 115; BP_DIAS 86; BP_DIAS 96
[2019-05-18] MEDS: FAMOTIDINE/PF INJ 20 MG/2 ML VIAL IV SCH ×2 (08:11→20:01)
[2019-05-18] MEDS: MAGNESIUM OXIDE 400 MG TABLET PO SCH ×2 (08:11→18:00)
[2019-05-18] MEDS: MAGIC MOUTHWASH PO SCH ×4 (08:12→21:32)
[2019-05-18 08:14] LABS: BASOPHILS % (AUTO) 0.6 % (0.0-2.0); EOSINOPHILS % (AUTO) 0.7 % (0.0-6.0); HEMATOCRIT 29 % (33-45); HEMOGLOBIN 9.7 g/dL (11.5-14.8); LYMPHOCYTES # (AUTO) 0.5 /CMM (0.8-4.8); LYMPHOCYTES % (AUTO) 10.2 % (20.0-44.0); MEAN CORPUSCULAR HGB CONC 33 g/dl (31.0-36.0); MEAN CORPUSCULAR VOLUME 83 fL (82-100); MONOCYTES # (AUTO) 0.6 /CMM (0.1-1.30); MONOCYTES % (AUTO) 13.1 % (2.0-12.0); NEUTROPHILS # (AUTO) 3.5 /CMM (1.8-8.9); NEUTROPHILS % (AUTO) 75.4 % (43.0-81.0); PLATELET COUNT (AUTO) 183 /CMM (150-450); RED BLOOD CELL COUNT(AUTO) 3.48 MIL/uL (4.0-5.2); WHITE BLOOD COUNT (AUTO) 4.6 K/uL (4.3-11.0)
[2019-05-18] MEDS: GLUCERNA SHAKE 237 ML CAN PO SCH ×3 (08:16→18:05)
[2019-05-18 08:17] LABS: CALCIUM, SERUM 7.7 mg/dL (8.5-10.1); CARBON DIOXIDE 34 mmol/L (21-32); CHLORIDE 95 mmol/L (98-107); CREATININE 0.9 mg/dL (0.6-1.3); GLUCOSE 322 mg/dL (74-106); MAGNESIUM 1.6 mg/dL (1.8-2.4); PHOSPHORUS 2.4 mg/dL (2.5-4.9); POTASSIUM 3.1 mmol/L (3.5-5.1); SODIUM SERUM 133 mmol/L (136-145); UREA NITROGEN, BLOOD 7 mg/dL (7-18)
[2019-05-18 09:00] LABS: NEUTROPHILS % (MANUAL) 64 (42-76)
[2019-05-18 09:01] LABS: BAND % (MANUAL) 3 % (0.0-5.0); LYMPHOCYTES % (MANUAL) 15 % (16-48); METAMYELOCYTES % 2 % (0-0); MONOCYTES % (MANUAL) 14 % (0-11.0); MYELOCYTES % 2 % (0-0)
[2019-05-18] MEDS: FLUCONAZOLE IN NS 200 MG in PREMIX 1 EA IV SCH ×2 (09:16)
[2019-05-18] MEDS: CEFEPIME 1 GM in IV D5W 50 ML IV SCH ×2 (09:16→20:01)
--- NOTE | 2019-05-18 09:30 | NUR ---
MS RN NOTES DUE MEDS GIVEN
[2019-05-18] MEDS: Magnesium 1GM/D5W 100ML PREMIX 100 ML IV SCH ×2 (11:34→12:56)
[2019-05-18] MEDS: POTASSIUM CHLORIDE 20 MEQ POWDER PACKET PO SCH ×2 (11:34→12:56)
[2019-05-18] MEDS ORDERED: NEUTRA PHOS 1 POWD.PACKET PO ONE (14:30)
[2019-05-18 16:00] VITALS: BP 140/77
[2019-05-18] MEDS ORDERED: BLOOD SUGAR DIAGNOSTIC 1 EACH STRIP IN SCH (17:30)
[2019-05-18] MEDS: INSULIN REGULAR, HUMAN 100 UNIT/ML 3 ML VIAL SQ PRN ×2 (17:59→21:33)
[2019-05-18] MEDS ORDERED: DEXTROSE 50%-WATER 50 ML DISP.SYRIN IV PRN (18:00)
[2019-05-18 20:00] VITALS: BP 150/75
--- NOTE | 2019-05-18 21:03 | NUR ---
RN MS OPENING NOTES RECEIVED PATIENT IN BED AWAKE, ALERT AND ORIENTED X1, VERBALLY RESPONSIVE. FAMILY AT BEDSIDE. BREATHING EVEN AND UNLABORED. NO SOB NOTED. ON 3LPM VIA NC. CURRENTLY WITH NO COMPLAINTS OF PAIN OR DISCOMFORT. NO FACIAL GRIMACING. RIGHT UPPER ARM PICC LINE INTACT AND PATENT. SKIN DRY AND WARM TO TOUCH. AFEBRILE. ALL OTHER NEEDS ATTENDED TO . SAFETY MEASURES IN PLACE. CALL LIGHT WITHIN REACH. WILL CONTINUE TO MONITOR.
[2019-05-18] MEDS: BLOOD SUGAR DIAGNOSTIC 1 EACH STRIP IN SCH (21:29)
[2019-05-18] MEDS: INSULIN GLARGINE, 100 UNIT/ML CARTRIDGE SQ SCH (21:32)
[2019-05-19] MEDS: ACYCLOVIR IV 500 MG in IV D5W 100 ML IV SCH ×3 (05:08→22:46)
[2019-05-19] MEDS: BLOOD SUGAR DIAGNOSTIC 1 EACH STRIP IN SCH ×4 (06:35→21:20)
[2019-05-19] MEDS: INSULIN REGULAR, HUMAN 100 UNIT/ML 3 ML VIAL SQ PRN ×2 (06:36→21:17)
--- NOTE | 2019-05-19 06:48 | NUR ---
RN MS CLOSING NOTES PATIENT RESTING IN BED. NO ACUTE CHANGES THROUGHOUT SHIFT. BREATHING EVEN AND UNLABORED. NO SOB NOTED. ON 3LMP OXYGEN VIA NC. NO S/S OF PAIN OR DISCOMFORT. NO FACIAL GRIMACING. RIGHT UPPER ARM PICC LINE INTACT AND PATENT. TURNED AND REPOSITIONED Q2H. ALL OTHER NEEDS ATTENDED TO. KEPT CLEAN DRY AND COMFORTABLE. SAFETY MEASURES IN PLACE. CALL LIGHT WITHIN REACH. WILL ENDORSE TO ONCOMING NURSE FOR TREVON.
[2019-05-19 07:55] LABS: BASOPHILS # (AUTO) 0.1 /CMM (0.0-0.2); EOSINOPHILS % (AUTO) 0.9 % (0.0-6.0); HEMATOCRIT 30 % (33-45); LYMPHOCYTES # (AUTO) 0.6 /CMM (0.8-4.8); LYMPHOCYTES % (AUTO) 10.3 % (20.0-44.0); MEAN CORPUSCULAR HGB CONC 34 g/dl (31.0-36.0); MEAN CORPUSCULAR VOLUME 82 fL (82-100); MONOCYTES # (AUTO) 0.7 /CMM (0.1-1.30); MONOCYTES % (AUTO) 11.8 % (2.0-12.0); NEUTROPHILS # (AUTO) 4.2 /CMM (1.8-8.9); PLATELET COUNT (AUTO) 200 /CMM (150-450); RED BLOOD CELL COUNT(AUTO) 3.64 MIL/uL (4.0-5.2); WHITE BLOOD COUNT (AUTO) 5.5 K/uL (4.3-11.0)
[2019-05-19 08:00] VITALS: BP 129/62
[2019-05-19] MEDS: GLUCERNA SHAKE 237 ML CAN PO SCH ×3 (08:00→17:00)
[2019-05-19 08:09] LABS: CALCIUM, SERUM 7.9 mg/dL (8.5-10.1); CARBON DIOXIDE 33 mmol/L (21-32); CHLORIDE 96 mmol/L (98-107); CREATININE 0.7 mg/dL (0.6-1.3); GLUCOSE 120 mg/dL (74-106); MAGNESIUM 1.7 mg/dL (1.8-2.4); PHOSPHORUS 2.6 mg/dL (2.5-4.9); SODIUM SERUM 134 mmol/L (136-145); UREA NITROGEN, BLOOD 8 mg/dL (7-18)
[2019-05-19] MEDS: MAGIC MOUTHWASH PO SCH ×4 (08:46→22:09)
[2019-05-19 08:49] LABS: BAND % (MANUAL) 6 % (0.0-5.0); LYMPHOCYTES % (MANUAL) 13 % (16-48); METAMYELOCYTES % 2 % (0-0); MONOCYTES % (MANUAL) 9 % (0-11.0); MYELOCYTES % 5 % (0-0); NEUTROPHILS % (MANUAL) 65 (42-76)
[2019-05-19] MEDS: CEFEPIME 1 GM in IV D5W 50 ML IV SCH (09:52)
[2019-05-19] MEDS: FAMOTIDINE/PF INJ 20 MG/2 ML VIAL IV SCH ×2 (09:52→21:09)
[2019-05-19] MEDS: MAGNESIUM OXIDE 400 MG TABLET PO SCH ×2 (09:52→18:22)
--- NOTE | 2019-05-19 10:00 | NUR ---
potassium level and mg. levels low,to be replaced.
[2019-05-19] MEDS: POTASSIUM CL. PREMIX PERIPHER. 50 ML IV SCH ×4 (11:17→20:28)
[2019-05-19] MEDS: MORPHINE SULFATE INJ 2 MG/ML DISP.SYRIN IV PRN (12:12)
[2019-05-19 16:00] VITALS: BP 141/77
[2019-05-19] MEDS: VANCOMYCIN 1 GM in IV D5W 250 ML IV SCH (16:09)
[2019-05-19] MEDS: FLUCONAZOLE IN NS 200 MG in PREMIX 1 EA IV SCH ×2 (17:50)
--- NOTE | 2019-05-19 19:20 | NUR ---
CHANGE OF SHIFT REPORT Patient in bed, sleeping arouses easily. On 3L oxygen via NC, non productive cough. No evidence of SOB, maintained upright position. NAVARRO PICC line, IV Potassium and IV Magnesium to be completed to infuse per report. Contact precaution, maintained safety.
--- NOTE | 2019-05-19 19:23 | NUR ---
both magnesium replacements and one potassium replacment not completed due to multiple antibiotic orders for pt. as well.pt. with double lumen picc.pt. not given iv meds combined as has a lot of congestion with cough already.
[2019-05-19 20:00] VITALS: BP 92/43
[2019-05-19] MEDS: INSULIN GLARGINE, 100 UNIT/ML CARTRIDGE SQ SCH (21:32)
[2019-05-19] MEDS: Magnesium 1GM/D5W 100ML PREMIX 100 ML IV SCH (21:33)
[2019-05-19 22:18] VITALS: BP 120/90
[2019-05-20] MEDS: Magnesium 1GM/D5W 100ML PREMIX 100 ML IV SCH (00:06)
[2019-05-20] MEDS: ACYCLOVIR IV 500 MG in IV D5W 100 ML IV SCH ×2 (05:59→13:35)
--- NOTE | 2019-05-20 06:21 | NUR ---
END OF SHIFT REPORT Patient in bed, sleeping arouses easily. Patient is A/O x1, son assist with translation, per son patient is not confused. Patient with non productive cough, moderate thick sputum, suction oral PRN. Maintained upright position, remains on supplemental oxygen via NC. On IV abx as scheduled with no adverse s/e. Contact precaution, PPE utilized. Maintained safety. Plan discharge to [facility] today, CM following. Will endorse to oncoming RN.
[2019-05-20] MEDS: BLOOD SUGAR DIAGNOSTIC 1 EACH STRIP IN SCH ×3 (07:24→17:09)
[2019-05-20] MEDS: INSULIN REGULAR, HUMAN 100 UNIT/ML 3 ML VIAL SQ PRN ×3 (07:25→17:22)
[2019-05-20 08:00] VITALS: BP 126/59
[2019-05-20] MEDS: FLUCONAZOLE IN NS 200 MG in PREMIX 1 EA IV SCH ×2 (08:12)
[2019-05-20] MEDS: MAGIC MOUTHWASH PO SCH ×3 (08:12→17:09)
[2019-05-20] MEDS: FAMOTIDINE/PF INJ 20 MG/2 ML VIAL IV SCH (08:12)
[2019-05-20] MEDS: MAGNESIUM OXIDE 400 MG TABLET PO SCH ×2 (08:12→17:09)
[2019-05-20] MEDS: GLUCERNA SHAKE 237 ML CAN PO SCH ×3 (08:13→17:09)
[2019-05-20 09:01] LABS: CALCIUM, SERUM 7.7 mg/dL (8.5-10.1); CARBON DIOXIDE 32 mmol/L (21-32); CHLORIDE 96 mmol/L (98-107); CREATININE 0.7 mg/dL (0.6-1.3); GLUCOSE 135 mg/dL (74-106); POTASSIUM 3.4 mmol/L (3.5-5.1); SODIUM SERUM 133 mmol/L (136-145); UREA NITROGEN, BLOOD 8 mg/dL (7-18)
[2019-05-20] MEDS: MORPHINE SULFATE INJ 2 MG/ML DISP.SYRIN IV PRN (11:51)
[2019-05-20 16:00] VITALS: BP 139/71
--- NOTE | 2019-05-20 16:40 | NUR ---
RN NOTE PATIENT IS BEING DISCHARGED TO [facility]. PAPERWORK COMPLETED AND SIGNED BY SON. REPORT CALLED TO [facility]. AWAITING TRANSPORTATION. PICTURES TAKEN AND PLACED IN CHART.
--- NOTE | 2019-05-20 19:00 | NUR ---
MS RN NOTE RECEIVED PT IN STABLE CONDITION, NON-VERBAL ON O2 3L TOLERATING WELL. FAMILY AT BEDSIDE. NO SIGNS OF SOB OR DISTRESS, NO INDICATION OF PAIN. AWAITING FOR CT HEAD RESULT TO SEE IF PT WILL D/C FROM [facility]. ALL CURRENT NEEDS MET. BED LOW, LOCKED, UPPER RAILS UP, AND CALL LIGHT WITHIN REACH. WILL CONT. TO MONITOR.
--- NOTE | 2019-05-20 19:37 | NUR ---
MS RN NOTE SPOKE WITH KIARRA, CASE FINISHING MACHINE ADJUSTER. PER KIARRA, "SPOKE WITH DR. CARTER, PT TO BE DISCHARGED AFTER HEAD CT IS RESULTED."
--- NOTE | 2019-05-20 20:00 | NUR ---
MS RN NOTE PT DISCHARGED SAFETLY FROM FLOOR ACCOMPANIED BY AMBULANCE STAFF, AND 2 SONS. PT IN STABLE CONDITION, NON-VERBAL. NO SIGNS OF SOB OR DISTRESS, NO INDICATIONS OF PAIN. BODY CHECK DONE, BELONGINGS TAKEN WITH PATIENT. DISCUSSED DISCHARGE PAPERWORK, SIGNED BY PT. SON. PICC LINE LEFT IN NAVARRO, PER MD NOTES.
--- NOTE | 2019-05-20 20:00 | NUR ---
MS RN NOTE CALLED [facility] TO GIVE REPORT, PER SUKHI JURADO RN GAVE REPORT ALREADY.
== END 2019-05-20 20:00 | DRG 242 ==
LOC: TELE 23:23 → MED 05-08 12:24
PROVIDERS: ADMIT Nurse Practitioner Acute Care; ATTEND Internal Medicine
PROC: B548ZZA Ultrasonography of Superior Vena Cava, Guidance (ICD-10-PCS; 2019-05-09)
PROC: 02HV33Z Insertion of Infusion Device into Superior Vena Cava, Percutaneous Approach (ICD-10-PCS; 2019-05-09)
PROC: 30233N1 Transfusion of Nonautologous Red Blood Cells into Peripheral Vein, Percutaneous Approach (ICD-10-PCS; 2019-05-14)
PROC: 0W9B3ZZ Drainage of Left Pleural Cavity, Percutaneous Approach (ICD-10-PCS; principal; 2019-05-15)
DX: B37.81 Candidal esophagitis (principal); J15.6 Pneumonia due to other Gram-negative bacteria; D61.810 Antineoplastic chemotherapy induced pancytopenia; E44.0 Moderate protein-calorie malnutrition; J90 Pleural effusion, not elsewhere classified; J96.10 Chronic respiratory failure, unspecified whether with hypoxia or hypercapnia; C83.30 Diffuse large B-cell lymphoma, unspecified site; D68.69 Other thrombophilia; E11.9 Type 2 diabetes mellitus without complications; R13.10 Dysphagia, unspecified; K22.8 Other specified diseases of esophagus; I10 Essential (primary) hypertension; T45.1X5A Adverse effect of antineoplastic and immunosuppressive drugs, initial encounter; Y92.009 Unspecified place in unspecified non-institutional (private) residence as the place of occurrence of the external cause; J98.11 Atelectasis; B37.83 Candidal cheilitis; E83.42 Hypomagnesemia; E87.6 Hypokalemia; E83.39 Other disorders of phosphorus metabolism; Z80.6 Family history of leukemia; E66.01 Morbid (severe) obesity due to excess calories; E11.649 Type 2 diabetes mellitus with hypoglycemia without coma; B37.0 Candidal stomatitis; E88.09 Other disorders of plasma-protein metabolism, not elsewhere classified; Z79.899 Other long term (current) drug therapy; Z68.34 Body mass index [BMI] 34.0-34.9, adult; Z22.322 Carrier or suspected carrier of Methicillin resistant Staphylococcus aureus; E11.65 Type 2 diabetes mellitus with hyperglycemia; D64.81 Anemia due to antineoplastic chemotherapy; E80.6 Other disorders of bilirubin metabolism; Z87.891 Personal history of nicotine dependence; Z91.81 History of falling; Z96.649 Presence of unspecified artificial hip joint; B00.2 Herpesviral gingivostomatitis and pharyngotonsillitis
CPT/HCPCS: 36415; 36569; 36600; 70450-TC; 71045-TC; 74230-TC; 76705-TC; 76942-TC; 80048-TC; 80053-TC; 80061-TC; 80076-TC; 80202-TC; 81000-TC; 82150-TC; 82728-TC; 82803-TC; 82962-TC; 83540-TC; 83615-TC; 83735-TC; 84100-TC; 84443-TC; 85025-TC; 85610-TC; 86850-TC; 86921-TC; 87040-TC; 87070-TC; 87081-TC; 89051-TC; 92526; 92611-TC; 93307-TC; 94799-TC; 97110-TC; 97112-TC; 97530-TC; A4216; A9563; C1751; G0378; J0133; J0692; J1442; J1450; J1815; J2270; J3370; J3475; J3480; J3490; J7030; J7040; J7050; J7060; P9016-BL